=== PATIENT | female | born 1990 ===

== ENCOUNTER 2017-10-13 15:56 | Emergency (ER) | payer SELFPAY ==
[~2017-10-13] VITALS: Ht 162.6 cm; Wt 97.5 kg
[~2017-10-13 15:56] MED LIST: DCS100C PO; FRS325T PO; HYDR-3714 PO; IBUP-1773 PO; PREN-107 PO
[2017-10-13 16:40] LABS: BASOPHILS % (AUTO) 0 % (0-10); EOSINOPHILS # (AUTO) 0.3 10^3/uL (0.0-0.3); EOSINOPHILS % (AUTO) 2 % (0-10); HEMATOCRIT 38 % (35-52); HEMOGLOBIN 12.7 G/DL (11.5-16.0); LYMPHOCYTES # (AUTO) 2.6 X 10^3 (1.0-4.0); LYMPHOCYTES % (AUTO) 22 % (12-44); MEAN CORPUSCULAR HEMOGLOBIN 30 PG (25-34); MEAN CORPUSCULAR HGB CONC 34 G/DL (32-36); MEAN CORPUSCULAR VOLUME 90 FL (80-99); MEAN PLATELET VOLUME 10.2 FL (7.4-10.4); MONOCYTES # (AUTO) 0.8 X 10^3 (0.0-1.0); MONOCYTES % (AUTO) 7 % (0-12); NEUTROPHILS # (AUTO) 8.1 X 10^3 (1.8-7.8); NEUTROPHILS % (AUTO) 68 % (42-75); PLATELET COUNT 321 10^3/uL (130-400); RED CELL DISTRIBUTION WIDTH 12.7 % (10.0-14.5); WHITE BLOOD COUNT 11.9 10^3/uL (4.3-11.0)
--- NOTE | 2017-10-13 17:08 | ED GU-Female ---
General Chief Complaint: -Female Stated Complaint: BLEEDING, 2 MO PREG Nursing Triage Note: PT TO ROOM 9 AMBULATES CO OF LOWER ABD PAIN AND CRAMPING. PT IS APPROX 2 MONTHS , PT STATES HAS USED 2 PADS IN PAST 30MIN FOR BLEEDING. RATES PAIN 7-10 Nursing Sepsis Screen: No Definite Risk Source: patient Exam Limitations: no limitations (YURIY WIN MD) History of Present Illness Time seen by provider: 17:03 Initial Comments The patient is a 27-year-old female. She speaks little Spanish but history is given by her . She has not yet seen the provider. He states that she had a miscarriage last June shortly after seeing the provider she is been closed to do so. She had a previous and then delivered here in 2013. She states there is no pain. Apparently the flow was light this morning but has become heavier. Timing/Duration: this morning (approximately 30) Severity/Quality: mild (YURIY WIN MD) Allergies and Home Medications Allergies Coded Allergies: No Known Drug Allergies (Unverified , 10/29/13) Constitutional: see HPI EENTM: no symptoms reported Respiratory: no symptoms reported Cardiovascular: no symptoms reported Gastrointestinal: no symptoms reported Genitourinary: no symptoms reported Expected Date of Delivery: May 05, 2018 Musculoskeletal: no symptoms reported Skin: no symptoms reported Psychiatric/Neurological: No Symptoms Reported Endocrine: No Symptoms Reported Hematologic/Lymphatic: No Symptoms Reported (YURIY WIN MD) Past Pzchgvf-Annavj-Cqzccs Hx Patient Social History Alcohol Use: Denies Use Recreational Drug Use: No Smoking Status: Never a Smoker Recent Foreign Travel: No Contact w/Someone Who Travel: No Recent Infectious Disease Expo: No Recent Hopitalizations: No (YURIY WIN MD) Immunizations Up To Date Tetanus Booster (TDap): Unknown Date of Influenza Vaccine: Aug 06, 2013 (YURIY WIN MD) Surgeries History of Surgeries: Yes (YURIY WIN MD) Respiratory History of Respiratory Disorde: No (YURIY WIN MD) Cardiovascular History of Cardiac Disorders: No (YURIY WIN MD) Neurological History of Neurological Disord: No (YURIY WIN MD) Reproductive System : Yes Expected Date of Delivery: May 05, 2018 Last Menstrual Period: Aug 06, 2017 Hx Reproductive Disorders: No (YURIY WIN MD) Gastrointestinal History of Gastrointestinal Di: No (YURIY WIN MD) Musculoskeletal History of Musculoskeletal Dis: No (YURIY WIN MD) Endocrine History of Endocrine Disorders: No (YURIY WIN MD) Cancer History of Cancer: No (YURIY WIN MD) Psychosocial History of Psychiatric Problem: No (YURIY WIN MD) Integumentary History of Skin or Integumenta: No (YURIY WIN MD) Blood Transfusions History of Blood Disorders: No Adverse Reaction to a Blood Tr: No (YURIY WIN MD) Family Medical History Family Medial History: Patient reports no known family medical history. (YURIY WIN MD) Family Medial History: Patient reports no known family medical history. (ISAAC LESLIE DO) Physical Exam Vital Signs Vital Sign - Last 12Hours 10/13/17 16:00 Temp 97.9 Pulse 119 Resp 18 B/P (MAP) 133/84 (100) Pulse Ox 98 (IASAC LESLIE DO) Vital Signs Capillary Refill : Less Than 3 Seconds (YURIY WIN MD) General Appearance: other (aNXIOUS) HEENT: normal ENT inspection Neck: full range of motion Cardiovascular: normal peripheral pulses, regular rate, rhythm, no edema, no gallop, no JVD, no murmur Respiratory: chest non-tender, lungs clear, normal breath sounds, no respiratory distress, no accessory muscle use, respiratory distress Gastrointestinal: normal bowel sounds, non tender, soft, no organomegaly, no pulsatile mass, abnormal bowel sounds Back: normal inspection Extremities: normal range of motion, non-tender, normal inspection, no pedal edema, no calf tenderness, normal capillary refill, pelvis stable Neurologic/Psychiatric: 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 nml as tested, no motor/sensory deficits, alert, normal mood/affect, oriented x 3 Skin: normal color, warm/dry, cyanosis, cool, diaphoresis, pallor Lymphatic: no adenopathy, axilla node tender (R), axilla node tender (L), inguinal node tender (R), inguinal node tender (L) (YURIY WIN MD) Progress/Results/Core Measures Suspected Sepsis Recent Fever Within 48 Hours: No Infection Criteria Present: None New/Unexplained Altered Menta: No Sepsis Screen: No Definite Risk Sepsis Diagnosis: SIRS Temperature:97.9 Pulse: 119 Respiratory Rate: 18 Laboratory Tests 10/13/17 16:31: White Blood Count 11.9H Blood Pressure 133 /84 Mean: 100 Laboratory Tests 10/13/17 16:31: Platelet Count 321 (YURIY WIN MD) Results/Orders Lab Results Laboratory Tests Test 10/13/17 16:31 Range/Units White Blood Count 11.9 H 4.3-11.0 10^3/uL Red Blood Count 4.20 L 4.35-5.85 10^6/uL Hemoglobin 12.7 11.5-16.0 G/DL Hematocrit 38 35-52 % Mean Corpuscular Volume 90 80-99 FL Mean Corpuscular Hemoglobin 30 25-34 PG Mean Corpuscular Hemoglobin Concent 34 32-36 G/DL Red Cell Distribution Width 12.7 10.0-14.5 % Platelet Count 321 130-400 10^3/uL Mean Platelet Volume 10.2 7.4-10.4 FL Neutrophils (%) (Auto) 68 42-75 % Lymphocytes (%) (Auto) 22 12-44 % Monocytes (%) (Auto) 7 0-12 % Eosinophils (%) (Auto) 2 0-10 % Basophils (%) (Auto) 0 0-10 % Neutrophils # (Auto) 8.1 H 1.8-7.8 X 10^3 Lymphocytes # (Auto) 2.6 1.0-4.0 X 10^3 Monocytes # (Auto) 0.8 0.0-1.0 X 10^3 Eosinophils # (Auto) 0.3 0.0-0.3 10^3/uL Basophils # (Auto) 0.0 0.0-0.1 10^3/uL Human Chorionic Gonadotropin, Quant 4456 H <5 MIU/ML (ISAAC LESLIE DO) Vital Signs/I&O Vital Sign - Last 12Hours 10/13/17 16:00 Temp 97.9 Pulse 119 Resp 18 B/P (MAP) 133/84 (100) Pulse Ox 98 (ISAAC LESLIE DO) Vital Signs/I&O Capillary Refill : Less Than 3 Seconds (YURIY WIN MD) Blood Pressure Mean: 100 Progress Note : Progress Note 1800--ASSUMED CARE FROM DR. WIN, ULTRASOUND RESULTS PENDING PT REPORTEDLY PASSED A LARGE CLOT, POSSIBLE PRODUCTS OF CONCEPTION, IN TOILET PRIOR TO ULTRASOUND PT STATES SHE IS NOT HAVING ANY PAIN NOW AND BLEEDING HAS ALMOST STOPPED NOW. 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 SMALL 2.5 CM RIGHT OVARIAN CYST. PER TECH REPORT @ 1810 AND PER RADIOLOGIST REPORT @ 1843 Reviewed: Reviewed by Me (ISAAC LESLIE DO) Departure Impression Impression: Primary Impression: Spontaneous miscarriage Disposition: HOME, SELF-CARE Condition: Stable Departure-Patient Inst. Referrals: GITA WHARTON APRN (PCP) Primary Care Physician Patient Instructions: Miscarriage (DC) Add. Discharge Instructions: KEEP AN ACCURATE PAD COUNT--RETURN TO ER IF SOAKING MORE THAN 1 MAXI PAD AN HOUR LOTS OF CLEAR LIQUIDS NOTHING IN VAGINA--NO TAMPONS, DOUCHING OR INTERCOURSE FOLLOW UP WITH RUBBING BED OPERATOR IN 2-3 DAYS FOR FURTHER CARE All discharge instructions reviewed with patient and/or family. Voiced understanding. YURIY WIN MD Oct 13, 2017 17:08 ISAAC LESLIE DO Oct 13, 2017 18:32
--- NOTE | 2017-10-13 18:39 | Diagnostic Imaging Report ---
EXAMINATION: Pelvic sonogram. INDICATION: Cramping. Blood clots. FINDINGS: There is thickening demonstrated of the endometrium measuring up to 1.9 cm. There also appear to be blood products within the lower uterine segment within the cervical canal. There is no intrauterine gestational sac demonstrated. There is a right ovarian cyst, measuring 2.4 cm. The right ovary demonstrates Doppler flow. The left ovary could not be visualized. There is no left adnexal mass. There is no free fluid. IMPRESSION: 1. Endometrial thickening with apparent blood products within the lower uterine segment and cervical canal. There is no intrauterine gestational sac evident. 2. Right ovarian cyst. 3. Left ovary not seen. 4. No adnexal mass or free fluid. Dictated by: Dictated on workstation # [id number]
[2017-10-13 19:07] VITALS: BP 133/84
== END 2017-10-13 19:08 | disposition home or self-care (01) ==
LOC: EDUNIT# 15:56 → ER 16:00
DX: O03.9 Complete or unspecified spontaneous abortion without complication (principal); Z87.59 Personal history of other complications of pregnancy, childbirth and the puerperium; Z3A.00 Weeks of gestation of pregnancy not specified
CPT/HCPCS: 36415; 76817; 84702; 85025

== ENCOUNTER → 2018-06-27 | Outpatient (CLI) | payer OTHER ==
--- NOTE | 2018-06-27 14:32 | Diagnostic Imaging Report ---
INDICATION: Check dates. TECHNIQUE: Multiple real-time grayscale images were obtained over the gravid uterus. COMPARISON: None. FINDINGS: The previous pelvic ultrasound exam of 10/13/2017 noted endometrial thickening with apparent blood products within the lower uterine segment. There was no sign of a gestational sac. On this exam, there is a single live fetus in variable presentation. heart motion was noted and a rate of 150 BPM was recorded. There were no obvious abnormalities identified. The growth parameters are fairly uniform and suggests that the estimated gestational age is 17 weeks +/-1 week. The placenta is posterior and there is no previa. The amniotic fluid volume is within normal limits. IMPRESSION: 1. There is a single live fetus at approximately 17 weeks gestation +/-1 week. The EDC is December 05, 2018. 2. There were no obvious abnormalities identified. If a more sensitive evaluation of anatomy is desired however, then a short-term (4-6 week) followup ultrasound exam should be obtained. 3. The growth parameters are fairly uniform. Biometrical measurements are as follows: Biparietal 3.48 cm, age 16 weeks 6 days. Head circumference 13.23 cm, age 16 weeks 6 days. Abdominal circumference 11.30 cm, age 17 weeks 1 days. Femur length 2.34 cm, age 17 weeks 1 days. Sonographic estimate age: 17 weeks 0 days. Sonographic estimated date of delivery: 12/05/2018. Estimated Weight: 179 gm (+/- 26 gm). LMP percentile: 98%. heart rate: 150 beats per minute. number: 1 of 1. Dictated by: Dictated on workstation # [id number]
== END ==
LOC: RAD 12:32
PROVIDERS: ATTEND Family Medicine
DX: Z34.82 Encounter for supervision of other normal pregnancy, second trimester (principal); Z3A.17 17 weeks gestation of pregnancy
CPT/HCPCS: 76805

== ENCOUNTER → 2018-08-04 | Outpatient (CLI) | payer OTHER ==
--- NOTE | 2018-08-04 15:43 | Diagnostic Imaging Report ---
INDICATION: survey. TECHNIQUE: Multiple real-time grayscale images were obtained over the gravid uterus. COMPARISON: 06/27/2018. FINDINGS: There is a single live fetus in a variable presentation. heart rate was recorded at 140 beats per minute. Placenta is posterior. Amniotic fluid volume is normal. Cervical length is 4.7 cm. survey demonstrates kidneys, bladder, and stomach to be unremarkable. The brain is unremarkable. There is a three-vessel cord with normal insertion. spine and four-chamber heart views were limited in evaluation due to position. Maternal adnexa was not evaluated. Biometrical measurements are as follows: Biparietal 5.19 cm, age 21 weeks 6 days. Head circumference 19.59 cm, age 21 weeks 6 days. Abdominal circumference 17.57 cm, age 22 weeks 4 days. Femur length 3.63 cm, age 21 weeks 4 days. Sonographic estimate age: 22 weeks 0 days. Sonographic estimated date of delivery: 12/08/2018. Estimated Weight: 469 gm (+/- 68 gm). LMP percentile: 24%. heart rate: 140 beats per minute. number: 1 of 1. IMPRESSION: Single live IUP at approximately 22 weeks gestational age showing normal interval growth when compared with prior ultrasound from 06/27/2018. survey is unremarkable, although the four-chamber heart view and spine were limited in evaluation due to position. Followup could be performed. Dictated by: Dictated on workstation # [id number]
== END ==
LOC: RAD 11:45
PROVIDERS: ATTEND Family Medicine
DX: Z36.89 Encounter for other specified antenatal screening (principal); Z3A.22 22 weeks gestation of pregnancy
CPT/HCPCS: 76805

== ENCOUNTER → 2018-08-15 | Outpatient (CLI) | payer OTHER ==
--- NOTE | 2018-08-15 16:50 | Diagnostic Imaging Report ---
INDICATION: Followup anatomy not seen on previous exam. TECHNIQUE: Multiple real-time grayscale images were obtained over the gravid uterus. COMPARISON: 08/04/2018. FINDINGS: There is a single live fetus in transverse presentation. heart rate was recorded at 147 beats per minute. Placenta is posterior. Amniotic fluid volume is normal. Cervical length is 3.9 cm. Four-chamber heart view is unremarkable on today's study. The spine is unremarkable. IMPRESSION: Unremarkable limited obstetrical ultrasound. Dictated by: Dictated on workstation # [id number]
== END ==
LOC: RAD 14:18
PROVIDERS: ATTEND Family Medicine
DX: Z36.89 Encounter for other specified antenatal screening (principal); Z3A.00 Weeks of gestation of pregnancy not specified
CPT/HCPCS: 76816

== ENCOUNTER 2018-11-12 11:01 | Outpatient (CLI) | payer OTHER ==
[~2018-11-12] VITALS: Ht 162.6 cm; Wt 107.2 kg
[2018-11-14] MEDS ORDERED: IBUP-844 PO (07:31)
[2018-11-14] MEDS ORDERED: ACHD5005 PO (07:31)
[2018-11-14] MEDS ORDERED: DOCU100C37 PO (07:31)
== END 2018-11-12 15:03 | disposition home or self-care (01) ==
LOC: PREOP 11:01
PROVIDERS: ATTEND Obstetrics & Gynecology
DX: Z01.818 Encounter for other preprocedural examination (principal)
CPT/HCPCS: 87081

== ENCOUNTER 2018-11-14 06:25 | Inpatient (IN) | payer OTHER ==
[~2018-11-14] VITALS: Ht 162.6 cm; Wt 106.6 kg
--- NOTE | 2018-11-14 06:24 | NUR ---
ZAY HERRERA presented to unit via ambulation from home, accompanied by family, for REPEAT C SECTION , DUE 12/05/18. ZAY HERRERA Y weighed, gowned, voided, and to bed. EFHM and TOCO applied, VS taken. ZAY HERRERA oriented to bed controls, call light, TV, heat, and A/C controls.
[2018-11-14 06:32] VITALS: BP 114/55
--- OUTSIDE RECORDS SUMMARY | 2018-11-14 06:33 | XMS REPORT ---
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 Active 664486405 Problem Tension headache G44.209 Active 839161593 Problem Previous section complicating O34.219 Active 419359545 Problem Subclinical hypothyroidism E03.9 Active 35795922 ALLERGIES No Information ENCOUNTERS Encounter Location Date Diagnosis [place] [address] [place] [address] Sep, [place] [address] [place] [id number] [place] [address]- 365[address] Aug, Subclinical hypothyroidism E03.9 [place] [address] [place] [address] Aug, Obstruction of bile duct K83.1 ; Liver and biliary tract disorders in , third trimester O26.613 and Subclinical hypothyroidism E03.9 [place] [address] [place] [address] Aug, Abnormal glucose affecting O99.810 [place] [address] [place] [id number] [place] [address] 138[address] Aug, Abnormal glucose affecting O99.810 [place] [address] [place] [address]- [address]85 Aug, Second trimester Z34.92 ; Urinary tract infection affecting care of mother in second trimester, antepartum O23.42 ; 25 weeks gestation of Z3A.25 ; Itching L29.9 and BMI 45.0-49.9, adult Z68.42 [place] [address] [address] Aug, Acute cystitis without hematuria N30.00 [place] [address] [address] Aug, Acute cystitis without hematuria N30.00 [place] [address] [address] Aug, Second trimester Z34.92 ; Acute cystitis without hematuria N30.00 ; 22 weeks gestation of Z3A.22 ; Evaluate anatomy not seen on prior sonogram Z04.89 and BMI 45.0-49.9, adult Z68.42 [place] [address] [address] Jul, [place] [address] [address] Jul, [place] [address] [address] Jul, Acquired hypothyroidism E03.9 and Acute cystitis without hematuria N30.00 [place] [address] [address] Jul, Acute cystitis without hematuria N30.00 [place] [address] [address] Jul, Second trimester Z34.92 ; Subclinical hypothyroidism E03.9 ; Encounter for immunization Z23 ; Acute cystitis without hematuria N30.00 ; 18 weeks gestation of Z3A.18 and Tension headache G44.209 [place] [address] [address] Jun, [place] [address] [address] 12 Sep, 2018 Acquired hypothyroidism E03.9 [place] [address] [place] [id number] [address] 08 Jun, 2018 Urinary tract infection affecting care of mother in first trimester, antepartum O23.41 [place] [address] [place] [id number] [address] 07 Jun, 2018 [place] [address] [place] [address] Jun, [place] [address] [place] [address] Jun, [place] [address] [place] [address]- [address] Jun, BMI 45.0-49.9, adult Z68.42 ; Multigravida in first trimester Z34.81 and 11 weeks gestation of Z3A.11 [place] [address] [address] Jun, [place] [address] [place] [id number] [address] Jun, Encounter for test, result unknown Z32.[address] [facility] [address] [address] Sep, Vaginal bleeding, abnormal N93.9 and Pelvic cramping R10.[address] [facility] [address] [address] Jul, Encounter for Depo-Provera contraception Z30.[address] [facility] [address] [address] Apr, Encounter for Depo-Provera contraception Z30.[address] [facility] [address] [address] Apr, Routine gynecological examination Z01.419 and High risk sexual behavior Z72.[address] [facility] [address] [address] Apr, Encounter for initial prescription of injectable contraceptive Z30.[address] [facility] [address] [place] [address] Dec, Dental examination Z01.20 [facility] [place] [address] [place] [address] Dec, Dental examination Z01.20 [facility] [place] [address] [place] [address] Nov, Dental examination Z01.20 [facility] [place] [address] [place] [address] Nov, Dental examination Z01.20 [facility] [place] [address] [place] [address] Oct, Dental examination Z01.20 [facility] [place] [address] [place] [address] Oct, Dental examination Z01.20 and Dental caries on smooth surface penetrating into pulp K02.63 [facility] [address] [place] [id number] [place] [address] Jan, [facility] [address] [place] [id number] [place] [address]- [address] Jan, [facility] [address] [place] [id number] [place] [address]- [address] Dec, [facility] [address] [place] [id number] [place] [address]- [address] Dec, [facility] [address] [place] [address] Oct, [facility] [address] [place] [id number] [place] [address]- [address] Oct, [facility] [address] [place] [id number] [place] [address] Oct, [facility] [address] [place] [id number] [place] [address]- [address] Oct, [facility] [address] [place] [id number] [place] [address]- [address] Oct, [facility] [place] [facility] [address] [id number] [place] [address] 15 Oct, 2013 [facility] [place] [facility] [address] [id number] [place] [address] Oct, [facility] [place] [facility] [address] [id number] [place] [address] 269[address] Oct, [facility] [place] [facility] [address] [id number] [place] [address] Oct, [facility] [place] [facility] [address] [id number] [place] [address] Sep, [facility] [place] [facility] [address] [id number] [place] [address] Sep, [facility] [place] [facility] [address] [id number] [place] [address] Sep, [facility] [place] [facility] [address] [id number] [place] [address] 49[address] Sep, [facility] [place] [facility] [address] [id number] [place] [address] Aug, [facility] [place] [facility] [address] [id number] [place] [address] 83[address] Aug, [facility] [place] [facility] [address] [id number] [place] [address] Aug, [facility] [place] [facility] [address] [id number] [place] [address] 0[address] Jul, [facility] [place] [facility] [address] [id number] [place] [address] 18[address] Jul, [facility] [place] [facility] [address] [id number] [place] [address]- 7587 Jul, [facility] [place] [facility] [address] [id number] [place] [address] Jul, [facility] [place] [facility] [address] [id number] [place] [address] Jul, [facility] [address] [facility] [id number] [address] Jul, [facility] [address] [facility] [id number], [place] [address] Jul, [facility] [address] [facility] [id number], [place] [address] Jul, IMMUNIZATIONS No Known Immunizations SOCIAL HISTORY Never Assessed REASON FOR VISIT PLAN OF CARE Activity Details Pending Test GLUCOSE BARNEY 3 HOUR VITAL SIGNS MEDICATIONS Unknown Medications RESULTS No Results PROCEDURES No Known procedures INSTRUCTIONS MEDICATIONS ADMINISTERED No Known Medications MEDICAL (GENERAL) HISTORY Type Description Date Surgical History appendectomy Surgical History section X 2 Hospitalization History Surgery(s)/Childbirth(s)
--- OUTSIDE RECORDS SUMMARY | 2018-11-14 06:33 | XMS REPORT ---
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 Active 255265602 Problem Tension headache G44.209 Active 531594602 Problem Previous section complicating O34.219 Active 029626486 Problem Subclinical hypothyroidism E03.9 Active 08419116 ALLERGIES No Information ENCOUNTERS Encounter Location Date Diagnosis [place] [id number] [place] [address] 22993- 8246 Sep, [place] [address] [place] [id number] [place] [address] 35603- 4315 Aug, Subclinical hypothyroidism E03.9 [place] [id number] [place] [address] 18800- 8047 Aug, Obstruction of bile duct K83.1 ; Liver and biliary tract disorders in , third trimester O26.613 and Subclinical hypothyroidism E03.9 [place] [id number] [place] [address] 27165- 7901 Aug, Abnormal glucose affecting O99.810 [place] [address] [place] [id number] [place] [address] 24894- 3807 Aug, Abnormal glucose affecting O99.810 [place] [address] [place] [address] 29806- 3767 Aug, Second trimester Z34.92 ; Urinary tract infection affecting care of mother in second trimester, antepartum O23.42 ; 25 weeks gestation of Z3A.25 ; Itching L29.9 and BMI 45.0-49.9, adult Z68.42 [place] [address] 03822- 5853 Aug, Acute cystitis without hematuria N30.00 [place] [address] 83896- 9080 Aug, Acute cystitis without hematuria N30.00 [place] [address] 59789- 6454 Aug, Second trimester Z34.92 ; Acute cystitis without hematuria N30.00 ; 22 weeks gestation of Z3A.22 ; Evaluate anatomy not seen on prior sonogram Z04.89 and BMI 45.0-49.9, adult Z68.42 [place] [address] 93465- 5242 Jul, [place] [address] 27469- 1635 Jul, [place] [address] 56282- 1823 Jul, Acquired hypothyroidism E03.9 and Acute cystitis without hematuria N30.00 [place] [address] 02059- 5695 Jul, Acute cystitis without hematuria N30.00 [place] [address] 29628- 0895 Jul, Second trimester Z34.92 ; Subclinical hypothyroidism E03.9 ; Encounter for immunization Z23 ; Acute cystitis without hematuria N30.00 ; 18 weeks gestation of Z3A.18 and Tension headache G44.209 [place] [address] 16865- 8772 Jun, [place] [address] 77596- 7711 12 Sep, 2018 Acquired hypothyroidism E03.9 [place] [address] [place] [id number] [address] 7229 08 Jun, 2018 Urinary tract infection affecting care of mother in first trimester, antepartum O23.41 [place] [address] [id number] [address] 7165 07 Jun, 2018 [place] [address] [address] 3709 Jun, [place] [address] [address] 5574 Jun, [place] [address] [place] [address] 34886- 2122 Jun, BMI 45.0-49.9, adult Z68.42 ; Multigravida in first trimester Z34.81 and 11 weeks gestation of Z3A.11 [place] [address] [address] 5409 Jun, [place] [address] [id number] [address] 0914 Jun, Encounter for test, result unknown Z32.[address] [facility] [address] [address] Sep, Vaginal bleeding, abnormal N93.9 and Pelvic cramping R10.[address] [facility] [address] [address] Jul, Encounter for Depo-Provera contraception Z30.[address] [facility] [address] [address] Apr, Encounter for Depo-Provera contraception Z30.[address] [facility] [address] [address] Apr, Routine gynecological examination Z01.419 and High risk sexual behavior Z72.[address] [facility] [address] [address] Apr, Encounter for initial prescription of injectable contraceptive Z30.[address] [facility] [address] [place] [address] Dec, Dental examination Z01.20 [facility] [place] [address] [place] [address] Dec, Dental examination Z01.20 [facility] [place] [address] [place] [address] Nov, Dental examination Z01.20 [facility] [place] [address] [place] [address] Nov, Dental examination Z01.20 [facility] [place] [address] [place] [address] Oct, Dental examination Z01.20 [facility] [place] [address] [place] [address] Oct, Dental examination Z01.20 and Dental caries on smooth surface penetrating into pulp K02.63 [facility] [address] [id number] [place] [address] 17678- 2552 Jan, [facility] [address] [address] [id number] [place] [address] 71887- 4674 Jan, [facility] [address] [id number] [place] [address] 14078- 7652 Dec, [facility] [address] [address] [id number] [place] [address] 53159- 0239 Dec, [facility] [address] [place] [address] 87506- 3542 Oct, [facility] [address] [place] [address] [id number] [place] [address] 76180- 3396 Oct, [facility] [address] [address] [id number] [place] [address] 00684- 8947 Oct, [facility] [address] [place] [address] [id number] [place] [address] 55639- 4817 Oct, [facility] [address] [address] [id number] [place] [address] 36263- 4274 Oct, [facility] [place] [facility] [address] [id number] [place] [address] 5012 15 Oct, 2013 [facility] [place] [facility] [address] [id number] [place] [address] 3340 Oct, [facility] [place] [facility] [address] [id number] [place] [address]- 9326 Oct, [facility] [place] [facility] [address] [id number] [place] [address]- 8835 Oct, [facility] [place] [facility] [address] [id number] [place] [address]- 8293 Sep, [facility] [place] [facility] [address] [id number] [place] [address]- 4197 Sep, [facility] [place] [facility] [address] [id number] [place] [address]- 7100 Sep, [facility] [place] [facility] [address] [id number] [place] [address]- 9689 Sep, [facility] [place] [facility] [address] [id number] [place] [address]- 1391 Aug, [facility] [place] [facility] [address] [id number] [place] [address]- 3451 Aug, [facility] [place] [facility] [address] [id number] [place] [address]- 0618 Aug, [facility] [place] [facility] [address] [id number] [place] [address]- 0324 Jul, [facility] [place] [facility] [address] [id number] [place] [address]- 1637 Jul, [facility] [place] [facility] [address] [id number] [place] [address]- 6367 Jul, [facility] [place] [facility] [address] [id number] [place] [address]- 8651 Jul, [facility] [place] [facility] [address] [id number] [place] [address]- 6498 Jul, [facility] [address] [facility] [id number] [address] 3456 Jul, [facility] [address] [facility] [id number], [place] [address]- 0106 Jul, [facility] [address] [facility] [id number], [place] [address]- 7746 Jul, IMMUNIZATIONS No Known Immunizations SOCIAL HISTORY Never Assessed REASON FOR VISIT PLAN OF CARE VITAL SIGNS MEDICATIONS Medication Instructions Dosage Frequency Start Date End Date Duration Status Ursodiol 300 MG Orally 3 times a day 1 capsule 8h Aug, Active Ferrous Sulfate Active Vitamins - (Dis) Active Levothyroxine Sodium 50 mcg Orally Once a day 1 tablet on an empty stomach in the morning 24h Jun, Active RESULTS No Results PROCEDURES No Known procedures INSTRUCTIONS MEDICATIONS ADMINISTERED No Known Medications MEDICAL (GENERAL) HISTORY Type Description Date Surgical History appendectomy Surgical History section X 2 Hospitalization History Surgery(s)/Childbirth(s)
--- OUTSIDE RECORDS SUMMARY | 2018-11-14 06:33 | XMS REPORT ---
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 Active 393515072 Problem Tension headache G44.209 Active 555297400 Problem Previous section complicating O34.219 Active 031449092 Problem Subclinical hypothyroidism E03.9 Active 95288245 ALLERGIES No Information ENCOUNTERS Encounter Location Date Diagnosis [place] [address] [place] [address] 72980- 6623 Sep, [place] [address] [place] [id number] [place] [address] 80591- 9297 Aug, Subclinical hypothyroidism E03.9 [place] [address] [place] [address] 55845- 2167 Aug, Obstruction of bile duct K83.1 ; Liver and biliary tract disorders in , third trimester O26.613 and Subclinical hypothyroidism E03.9 [place] [address] [place] [address] 16205- 6872 Aug, Abnormal glucose affecting O99.810 [place] [address] [place] [id number] [place] [address] 32652- 2509 Aug, Abnormal glucose affecting O99.810 [place] [address] [place] [address] 40840- 4764 Aug, Second trimester Z34.92 ; Urinary tract infection affecting care of mother in second trimester, antepartum O23.42 ; 25 weeks gestation of Z3A.25 ; Itching L29.9 and BMI 45.0-49.9, adult Z68.42 [place] [address] 57522- 5924 Aug, Acute cystitis without hematuria N30.00 [place] [address] 08578- 2023 Aug, Acute cystitis without hematuria N30.00 [place] [address] 51165- 9429 Aug, Second trimester Z34.92 ; Acute cystitis without hematuria N30.00 ; 22 weeks gestation of Z3A.22 ; Evaluate anatomy not seen on prior sonogram Z04.89 and BMI 45.0-49.9, adult Z68.42 [place] [address] 23440- 9439 Jul, [place] [address] 55593- 4116 Jul, [place] [address] 20630- 5506 Jul, Acquired hypothyroidism E03.9 and Acute cystitis without hematuria N30.00 [place] [address] 89212- 2677 Jul, Acute cystitis without hematuria N30.00 [place] [address] 99816- 2034 Jul, Second trimester Z34.92 ; Subclinical hypothyroidism E03.9 ; Encounter for immunization Z23 ; Acute cystitis without hematuria N30.00 ; 18 weeks gestation of Z3A.18 and Tension headache G44.209 [place] [address] 39883- 2118 Jun, [place] [address] 91398- 6494 12 Sep, 2018 Acquired hypothyroidism E03.9 [place] [address] [place] [id number], [place] [address]- 6706 08 Jun, 2018 Urinary tract infection affecting care of mother in first trimester, antepartum O23.41 [place] [address] [place] [id number] [address]- 1638 07 Jun, 2018 [place] [address] [address]- 7505 Jun, [place] [address], [place] [address]- 7399 Jun, [place] [address] [place] [address] 55976- 2439 Jun, BMI 45.0-49.9, adult Z68.42 ; Multigravida in first trimester Z34.81 and 11 weeks gestation of Z3A.11 [place] [address], [place] [address]- 9873 Jun, [place] [address] [id number], [place] [address]- 6448 Jun, Encounter for test, result unknown Z32.[address] [facility] [address] [address] Sep, Vaginal bleeding, abnormal N93.9 and Pelvic cramping R10.[address] [facility] [address] [address] Jul, Encounter for Depo-Provera contraception Z30.[address] [facility] [address] [address] Apr, Encounter for Depo-Provera contraception Z30.[address] [facility] [address] [address] Apr, Routine gynecological examination Z01.419 and High risk sexual behavior Z72.[address] [facility] [address] [address] Apr, Encounter for initial prescription of injectable contraceptive Z30.[address] [facility] [address] [place] [address] Dec, Dental examination Z01.20 [facility] [place] [address] [place] [address] Dec, Dental examination Z01.20 [facility] [place] [address] [place] [address] Nov, Dental examination Z01.20 [facility] [place] [address] [place] [address] Nov, Dental examination Z01.20 [facility] [place] [address] [place] [address] Oct, Dental examination Z01.20 [facility] [place] [address] [place] [address] Oct, Dental examination Z01.20 and Dental caries on smooth surface penetrating into pulp K02.63 [facility] [place] [address] [place] [id number] [place] [address] 77440- 9063 Jan, [facility] [place] [address] [place] [address] [id number] [place] [address] 46915- 9688 Jan, [facility] [place] [address] [place] [address] [id number] [place] [address] 44428- 5641 Dec, [facility] [place] [address] [place] [address] [id number] [place] [address] 95585- 8256 Dec, [facility] [place] [address] [place] [address] 70909- 1965 Oct, [facility] [place] [address] [place] [address] [id number] [place] [address] 78748- 7976 Oct, [facility] [place] [address] [address] [id number] [place] [address] 62217- 7280 Oct, [facility] [place] [address] [address] [id number] [place] [address] 86142- 2250 Oct, [facility] [place] [address] [address] [id number] [place] [address] 64716- 3907 Oct, [facility] [place] [facility] [address] [id number] [place] [address]- 5599 15 Oct, 2013 [facility] [place] [facility] [address] [id number] [place] [address]- 3084 Oct, [facility] [place] [facility] [address] [id number] [place] [address]- 7826 Oct, [facility] [place] [facility] [address] [id number] [place] [address]- 4115 Oct, [facility] [place] [facility] [address] [id number] [place] [address]- 1047 Sep, [facility] [place] [facility] [address] [id number] [place] [address]- 6158 Sep, [facility] [place] [facility] [address] [id number] [place] [address]- 9708 Sep, [facility] [place] [facility] [address] [id number] [place] [address]- 2138 Sep, [facility] [place] [facility] [address] [id number] [place] [address]- 3821 Aug, [facility] [place] [facility] [address] [id number] [place] [address]- 0813 Aug, [facility] [place] [facility] [address] [id number] [place] [address]- 1671 Aug, [facility] [place] [facility] [address] [id number] [place] [address]- 1434 Jul, [facility] [place] [facility] [address] [id number] [place] [address]- 5568 Jul, [facility] [place] [facility] [address] [id number] [place] [address]- 2125 Jul, [facility] [place] [facility] [address] [id number] [place] [address]- 2678 Jul, [facility] [place] [facility] [address] [id number] [place] [address]- 0519 Jul, [facility] [place] [address] [facility] [id number] 3143 Jul, [facility] [place] [address] [facility] [id number], [place] [address]- 9169 Jul, [facility] [place] [address] [facility] [id number], [place] [address]- 8430 Jul, IMMUNIZATIONS No Known Immunizations SOCIAL HISTORY Never Assessed REASON FOR VISIT Lab order PLAN OF CARE VITAL SIGNS MEDICATIONS Unknown Medications RESULTS No Results PROCEDURES No Known procedures INSTRUCTIONS MEDICATIONS ADMINISTERED No Known Medications MEDICAL (GENERAL) HISTORY Type Description Date Surgical History appendectomy Surgical History section X 2 Hospitalization History Surgery(s)/Childbirth(s)
--- OUTSIDE RECORDS SUMMARY | 2018-11-14 06:33 | XMS REPORT ---
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 Active 759622848 Problem Tension headache G44.209 Active 851017299 Problem Gestational diabetes mellitus (GDM) in third trimester, gestational diabetes method of control unspecified O24.419 Active 99458138 Problem Previous section complicating O34.219 Active 710983901 Problem Subclinical hypothyroidism E03.9 Active 48062206 ALLERGIES No Information ENCOUNTERS Encounter Location Date Diagnosis [place] [id number] [place] [address] 29187- 2086 Sep, [place] [id number] [place] [address] 51384- 5314 Sep, Gestational diabetes mellitus (GDM) in third trimester, gestational diabetes method of control unspecified O24.419 ; Third trimester Z34.93 and 29 weeks gestation of Z3A.29 [place] [id number] [place] [address] 94238- 2707 Aug, Subclinical hypothyroidism E03.9 [place] [id number] [place] [address] 17914- 0691 Aug, Obstruction of bile duct K83.1 ; Liver and biliary tract disorders in , third trimester O26.613 and Subclinical hypothyroidism E03.9 [facility] [address] [place] [address] 39318- 6966 Aug, Abnormal glucose affecting O99.810 [place] [id number] [place] [address] 37036- 9691 Aug, Abnormal glucose affecting O99.810 [place] [id number] [place] [address] 01265- 3804 Aug, Second trimester Z34.92 ; Urinary tract infection affecting care of mother in second trimester, antepartum O23.42 ; 25 weeks gestation of Z3A.25 ; Itching L29.9 and BMI 45.0-49.9, adult Z68.42 [place] [id number] [place] [address] 26428- 0830 Aug, Acute cystitis without hematuria N30.00 [place] [id number] [place] [address] 27848- 3875 Aug, Acute cystitis without hematuria N30.00 [place] [address] 55666- 7761 Aug, Second trimester Z34.92 ; Acute cystitis without hematuria N30.00 ; 22 weeks gestation of Z3A.22 ; Evaluate anatomy not seen on prior sonogram Z04.89 and BMI 45.0-49.9, adult Z68.42 [place] [id number] [place] [address] 83172- 9768 Jul, [place] [id number] [place] [address] 21381- 0142 Jul, [place] [id number] [place] [address] 69120- 2694 Jul, Acquired hypothyroidism E03.9 and Acute cystitis without hematuria N30.00 [place] [id number] [place] [address] 80309- 4432 Jul, Acute cystitis without hematuria N30.00 [place] [id number] [place] [address] 50289- 1302 Jul, Second trimester Z34.92 ; Subclinical hypothyroidism E03.9 ; Encounter for immunization Z23 ; Acute cystitis without hematuria N30.00 ; 18 weeks gestation of Z3A.18 and Tension headache G44.209 [place] [id number] [place] [address] 21429- 2724 Jun, [place] [id number] [place] [address] 33642- 1307 Jun, Acquired hypothyroidism E03.9 [place] [address] 13606- 2596 Jun, Urinary tract infection affecting care of mother in first trimester, antepartum O23.41 [place] [address] 36166- 7566 07 Jun, 2018 [place] [address] 82385- 4377 Jun, [place] [address] 57422- 1538 Jun, [place] [id number] [place] [address] 10329- 1018 Jun, BMI 45.0-49.9, adult Z68.42 ; Multigravida in first trimester Z34.81 and 11 weeks gestation of Z3A.11 [place] [id number] [place] [address] 43229- 4264 Jun, [place] [id number] [place] [address] 71209- 5846 Jun, Encounter for test, result unknown Z32.00 [facility] [place] [address] [place] [address] Sep, Vaginal bleeding, abnormal N93.9 and Pelvic cramping R10.2 [facility] [place] [address] [place] [address] Jul, Encounter for Depo-Provera contraception Z30.42 [facility] [place] [address] [place] [address] Apr, Encounter for Depo-Provera contraception Z30.42 [facility] [address] [place] [address] Apr, Routine gynecological examination Z01.419 and High risk sexual behavior Z72.51 [facility] [address] [place] [address] Apr, Encounter for initial prescription of injectable contraceptive Z30.013 [facility] [address] [place] [address] Dec, Dental examination Z01.20 [facility] [address] [place] [address] Dec, Dental examination Z01.20 [facility] [address] [place] [address] Nov, Dental examination Z01.20 [facility] [address] [place] [address] Nov, Dental examination Z01.20 [facility] [address] [place] [address] Oct, Dental examination Z01.20 [facility] [address] [place] [address] Oct, Dental examination Z01.20 and Dental caries on smooth surface penetrating into pulp K02.63 [facility] [id number] [place] [address] 22290- 9333 Jan, [facility] [id number] [place] [address] 48485- 0121 Jan, [facility] [id number] [place] [address] 88042- 8345 Dec, [facility] [id number] [place] [address] 54247- 4447 Dec, [facility] [id number] [place] [address] 53368- 4319 Oct, [facility] [id number] [place] [address] 52293- 2760 Oct, [facility] [place] [facility] [address] [id number] [place] [address]- 5191 Oct, [facility] [place] [facility] [address] [id number] [place] [address]- 9935 Oct, [facility] [place] [facility] [address] [id number] [place] [address]- 1680 Oct, [facility] [place] [facility] [address] [id number] [place] [address]- 7914 Oct, [facility] [place] [facility] [address] [id number] [place] [address]- 1080 Oct, [facility] [place] [facility] [address] [id number] [place] [address]- 6283 Oct, [facility] [place] [facility] [address] [id number] [place] [address]- 5441 Oct, [facility] [place] [facility] [address] [id number] [place] [address]- 7030 Sep, [facility] [place] [facility] [address] [id number] [place] [address]- 5772 Sep, [facility] [place] [facility] [address] [id number] [place] [address]- 5891 Sep, [facility] [place] [facility] [address] [id number] [place] [address]- 8332 Sep, [facility] [place] [facility] [address] [id number] [place] [address]- 1726 Aug, [facility] [place] [facility] [address] [id number] [place] [address]- 3442 Aug, [facility] [place] [facility] [address] [id number] [place] [address]- 4133 Aug, [facility] [place] [facility] [address] [id number] [place] [address]- 6686 Jul, [facility] [place] [facility] [address] [id number] [place] [address]- 9098 Jul, [facility] [id number] [address]- 6942 Jul, [facility] [address] [place] [address]- 3043 Jul, [facility] [id number] [address]- 4307 Jul, [facility] [address] [place] [address]- 6594 Jul, [facility] [address] [place] [address]- 3089 Jul, [facility] [address] [place] [address]- 6217 Jul, IMMUNIZATIONS No Known Immunizations SOCIAL HISTORY Never Assessed REASON FOR VISIT OB f/u, long dip with urine culture in third trimester -a[place] PLAN OF CARE Activity Details Pending Test CULTURE, URINE VITAL SIGNS Height 58 in 2018-09-23 Weight 229.4 lbs 2018-09-23 Temperature 98.3 degrees Fahrenheit 2018-09-23 Heart Rate 79 bpm 2018-09-23 Respiratory Rate 20 2018-09-23 BMI 47.945 kg/m2 2018-09-23 Blood pressure systolic 118 mmHg 2018-09-23 Blood pressure diastolic 82 mmHg 2018-09-23 MEDICATIONS Medication Instructions Dosage Frequency Start Date End Date Duration Status Ursodiol 300 MG Orally 3 times a day 1 capsule 8h Aug, Active Levothyroxine Sodium 50 mcg Orally Once a day 1 tablet on an empty stomach in the morning 24h Jun, Active Ferrous Sulfate Active Vitamins - (Dis) Active Glucocard Expression Monitor w/Device as directed Sep, Active Glucocard Expression Test - as directed 6h Sep, Active RESULTS Name Result Date Reference Range UA LONG DIP (IN HOUSE) 2018-09-23 Lot # [id number] Exp date 06/2019 Clarity yellow Color clear Odor GLU neg AKIRA neg KET neg SG 1.010 BLO neg pH 7.0 Protein neg URO 0.2 NIT neg CHIRAG neg Lot # Exp date PROCEDURES Procedure Date Ordered Result Body Site URINALYSIS, AUTO, W/O SCOPE Sep 23, 2018 URINE CULTURE/COLONY COUNT Sep 23, 2018 INSTRUCTIONS MEDICATIONS ADMINISTERED No Known Medications MEDICAL (GENERAL) HISTORY Type Description Date Surgical History appendectomy Surgical History section X 2 Hospitalization History Surgery(s)/Childbirth(s)
--- OUTSIDE RECORDS SUMMARY | 2018-11-14 06:33 | XMS REPORT ---
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 Active 405604159 Problem Tension headache G44.209 Active 259865349 Problem Previous section complicating O34.219 Active 161645895 Problem Subclinical hypothyroidism E03.9 Active 96226986 ALLERGIES No Information ENCOUNTERS Encounter Location Date Diagnosis [place] [address] [place] [address] 36792- 9376 Sep, [place] [address] [place] [id number] [place] [address] 06093- 9540 Aug, Subclinical hypothyroidism E03.9 [place] [address] [place] [address] 24878- 1457 Aug, Obstruction of bile duct K83.1 ; Liver and biliary tract disorders in , third trimester O26.613 and Subclinical hypothyroidism E03.9 [place] [address] [place] [address] 75172- 2195 Aug, Abnormal glucose affecting O99.810 [place] [id number] [place] [address] 21477- 4430 Aug, Abnormal glucose affecting O99.810 [place] [address] [place] [address] 36116- 5051 Aug, Second trimester Z34.92 ; Urinary tract infection affecting care of mother in second trimester, antepartum O23.42 ; 25 weeks gestation of Z3A.25 ; Itching L29.9 and BMI 45.0-49.9, adult Z68.42 [place] [address] 44199- 2353 Aug, Acute cystitis without hematuria N30.00 [place] [address] 94321- 4867 Aug, Acute cystitis without hematuria N30.00 [place] [address] 80608- 4259 Aug, Second trimester Z34.92 ; Acute cystitis without hematuria N30.00 ; 22 weeks gestation of Z3A.22 ; Evaluate anatomy not seen on prior sonogram Z04.89 and BMI 45.0-49.9, adult Z68.42 [place] [address] 27487- 5388 Jul, [place] [address] 64472- 7755 Jul, [place] [address] 40253- 3295 Jul, Acquired hypothyroidism E03.9 and Acute cystitis without hematuria N30.00 [place] [address] 34602- 5019 Jul, Acute cystitis without hematuria N30.00 [place] [address] 45352- 1701 Jul, Second trimester Z34.92 ; Subclinical hypothyroidism E03.9 ; Encounter for immunization Z23 ; Acute cystitis without hematuria N30.00 ; 18 weeks gestation of Z3A.18 and Tension headache G44.209 [place] [address] 41490- 6898 Jun, [place] [address] 39857- 5920 12 Sep, 2018 Acquired hypothyroidism E03.9 [place] [address] [place] [id number] [address]- 6756 08 Jun, 2018 Urinary tract infection affecting care of mother in first trimester, antepartum O23.41 [place] [id number] [address]- 4660 07 Jun, 2018 [place] [address] [place] [address]- 7327 Jun, [place] [address], [place] [address]- 1821 Jun, [place] [address] [place] [address] 05265- 0449 Jun, BMI 45.0-49.9, adult Z68.42 ; Multigravida in first trimester Z34.81 and 11 weeks gestation of Z3A.11 [place] [address], [place] [address]- 6344 Jun, [place] [id number] [address]- 3530 Jun, Encounter for test, result unknown Z32.[address] [facility] [address] [address] Sep, Vaginal bleeding, abnormal N93.9 and Pelvic cramping R10.[address] [facility] [address] [address] Jul, Encounter for Depo-Provera contraception Z30.[address] [facility] [address] [address] Apr, Encounter for Depo-Provera contraception Z30.[address] [facility] [address] [address] Apr, Routine gynecological examination Z01.419 and High risk sexual behavior Z72.[address] [facility] [address] [address] Apr, Encounter for initial prescription of injectable contraceptive Z30.[address] [facility] [address] [place] [address] Dec, Dental examination Z01.20 [facility] [place] [address] [place] [address] Dec, Dental examination Z01.20 [facility] [place] [address] [place] [address] Nov, Dental examination Z01.20 [facility] [place] [address] [place] [address] Nov, Dental examination Z01.20 [facility] [place] [address] [place] [address] Oct, Dental examination Z01.20 [facility] [place] [address] [place] [address] Oct, Dental examination Z01.20 and Dental caries on smooth surface penetrating into pulp K02.63 [facility] [id number] [place] [address] 04700- 3300 Jan, [facility] [id number] [place] [address] 06236- 7077 Jan, [facility] [id number] [place] [address] 59733- 0018 Dec, [facility] [id number] [place] [address] 43467- 4430 Dec, [facility] [address] [place] [address] 82871- 5186 Oct, [facility] [id number] [place] [address] 77325- 3734 Oct, [facility] [id number] [place] [address] 81059- 0157 Oct, [facility] [id number] [place] [address] 59452- 8768 Oct, [facility] [id number] [place] [address] 80024- 9886 Oct, [facility] [place] [facility] [address] [id number] [place] [address]- 6516 15 Oct, 2013 [facility] [place] [facility] [address] [id number] [place] [address]- 3515 Oct, [facility] [place] [facility] [address] [id number] [place] [address]- 2496 Oct, [facility] [place] [facility] [address] [id number] [place] [address]- 2446 Oct, [facility] [place] [facility] [address] [id number] [place] [address]- 9607 Sep, [facility] [place] [facility] [address] [id number] [place] [address]- 5870 Sep, [facility] [place] [facility] [address] [id number] [place] [address]- 6063 Sep, [facility] [place] [facility] [address] [id number] [place] [address]- 8836 Sep, [facility] [place] [facility] [address] [id number] [place] [address]- 9676 Aug, [facility] [place] [facility] [address] [id number] [place] [address]- 6217 Aug, [facility] [place] [facility] [address] [id number] [place] [address]- 0327 Aug, [facility] [place] [facility] [address] [id number] [place] [address]- 7699 Jul, [facility] [place] [facility] [address] [id number] [place] [address]- 4184 Jul, [facility] [place] [facility] [address] [id number] [place] [address]- 2301 Jul, [facility] [place] [facility] [address] [id number] [place] [address]- 1866 Jul, [facility] [place] [facility] [address] [id number] [place] [address]- 4054 Jul, [facility] [address] [facility] [id number], [place] [address]- 7997 Jul, [facility] [address] [facility] [id number], [place] [address]- 9946 Jul, [facility] [address] [facility] [id number], [place] [address]- 2305 Jul, IMMUNIZATIONS No Known Immunizations SOCIAL HISTORY Never Assessed REASON FOR VISIT Prescription PLAN OF CARE VITAL SIGNS MEDICATIONS Medication Instructions Dosage Frequency Start Date End Date Duration Status Vitamins - (Dis) Active Ferrous Sulfate Active Ursodiol 300 MG Orally 3 times a day 1 capsule 8h Aug, 30 days Active Levothyroxine Sodium 50 mcg Orally Once a day 1 tablet on an empty stomach in the morning 24h Jun, Active RESULTS No Results PROCEDURES No Known procedures INSTRUCTIONS MEDICATIONS ADMINISTERED No Known Medications MEDICAL (GENERAL) HISTORY Type Description Date Surgical History appendectomy Surgical History section X 2 Hospitalization History Surgery(s)/Childbirth(s)
--- OUTSIDE RECORDS SUMMARY | 2018-11-14 06:34 | XMS REPORT ---
Author Author JENNIE EZIO [facility] Address [address] [place] [address] Care Team Providers Care Sleeping Car Service Attendant Name Role Phone JENNIELYUDMILA HULLHANY Unavailable PROBLEMS Type Condition ICD9-CM Code LAX09-GH Code Onset Dates Condition Status SNOMED Code Problem Previous section complicating O34.219 Active 537298484 Problem Subclinical hypothyroidism E03.9 Active 52793255 Problem Tension headache G44.209 Active [id number] ALLERGIES No Known Allergies ENCOUNTERS Encounter Location Date Diagnosis [place] [address] [address] Aug, [address] [address] Aug, Second trimester Z34.92 ; Acute cystitis without hematuria N30.00 ; 22 weeks gestation of Z3A.22 and Evaluate anatomy not seen on prior sonogram Z04.89 [place] [address] [place] [id number] [place] [address] Jul, [place] [address] [place] [id number] [place] [address] Jul, [place] [address] [address] Jul, Acquired hypothyroidism E03.9 and Acute cystitis without hematuria N30.00 [place] [address] [address] Jul, Acute cystitis without hematuria N30.00 [place] [address] [place] [id number] [place] [address] Jul, Second trimester Z34.92 ; Subclinical hypothyroidism E03.9 ; Encounter for immunization Z23 ; Acute cystitis without hematuria N30.00 ; 18 weeks gestation of Z3A.18 and Tension headache G44.209 [place] [address] [place] [id number] [place] [address] Jun, [place] [address] [place] [id number] [place] [address]- [address] Jun, Acquired hypothyroidism E03.9 [place] [address] [address] 08 Jun, 2018 Urinary tract infection affecting care of mother in first trimester, antepartum O23.41 [place] [address] [address] 07 Jun, 2018 [place] [address] [address] Jun, [place] [address] [address] Jun, [place] [address] [address] Jun, BMI 45.0-49.9, adult Z68.42 ; Multigravida in first trimester Z34.81 and 11 weeks gestation of Z3A.11 [place] [address] [place] [id number] [place] [address] Jun, [place] [address] [address] Jun, Encounter for test, result unknown Z32.00 [facility] [place] [address] [place] [address] Sep, Vaginal bleeding, abnormal N93.9 and Pelvic cramping R10.2 [facility] [place] [address] [place] [address] Jul, Encounter for Depo-Provera contraception Z30.42 [facility] [place] [address] [place] [address] Apr, Encounter for Depo-Provera contraception Z30.42 [facility] [place] [address] [place] [address] Apr, Routine gynecological examination Z01.419 and High risk sexual behavior Z72.51 [facility] [address] [place] [address] Apr, Encounter for initial prescription of injectable contraceptive Z30.013 [facility] [place] [address] [place] [address] Dec, Dental examination Z01.20 [facility] [address] [place] [address] Dec, Dental examination Z01.20 [facility] [address] [place] [address] Nov, Dental examination Z01.20 [facility] [address] [place] [address] Nov, Dental examination Z01.20 [facility] [address] [place] [address] Oct, Dental examination Z01.20 [facility] [address] [place] [address] Oct, Dental examination Z01.20 and Dental caries on smooth surface penetrating into pulp K02.63 [facility] [address] [address] Jan, [facility] [id number] [place] [address]- 9[address] Jan, [facility] [address] [place] [id number] [place] [address]- [address] Dec, [facility] [address] [place] [id number] [place] [address]- 288[address] Dec, [facility] [address] [place] [id number] [place] [address]- 88[address] Oct, [facility] [address] [place] [id number] [place] [address]- [address] Oct, [facility] [address] [id number] [place] [address] Oct, [facility] [place] [facility] [address] [id number] [place] [address] Oct, [facility] [place] [facility] [address] [id number] [place] [address] Oct, [facility] [place] [facility] [address] [id number] [place] [address] Oct, [facility] [place] [facility] [address] [id number] [place] [address] 8[address] Oct, [facility] [place] [facility] [address] [id number] [place] [address] 95[address] Oct, [facility] [place] [facility] [address] [id number] [place] [address] 7[address] Oct, [facility] [place] [facility] [address] [id number] [place] [address] 8[address] Sep, [facility] [place] [facility] [address] [id number] [place] [address] 39[address] Sep, [facility] [place] [facility] [address] [id number] [place] [address] 3[address] Sep, [facility] [place] [facility] [address] [id number] [place] [address] Sep, [facility] [place] [facility] [address] [id number] [place] [address] Aug, [facility] [place] [facility] [address] [id number] [place] [address] Aug, [facility] [place] [facility] [address] [id number] [place] [address]- 3[address] Aug, [facility] [place] [facility] [address] [id number] [place] [address] 5[address] Jul, [facility] [place] [facility] [address] [id number] [place] [address]- 95[address] Jul, [facility] [address] [facility] [place] [id number], [place] [address] Jul, [facility] [address] [facility] [id number], [place] [address] Jul, [facility] [address] [facility] [id number], [place] [address] 270[address] Jul, [facility] [address] [facility] [id number], [place] [address]- 8[address] Jul, [facility] [address] [facility] [id number] [address] Jul, [facility] [address] [facility] [id number], [place] [address] Jul, IMMUNIZATIONS No Known Immunizations SOCIAL HISTORY Never Assessed REASON FOR VISIT OB 4wk f/u -- megha lindsey PLAN OF CARE Activity Details Follow Up 4 Weeks, 4 Weeks Reason: Pending Test Ultrasound : OB, Follow-up VITAL SIGNS Height 58 in 2018-08-07 Weight 232.0 lbs 2018-08-07 Temperature 97.0 degrees Fahrenheit 2018-08-07 Heart Rate 88 bpm 2018-08-07 Respiratory Rate 20 2018-08-07 BMI 48.488 kg/m2 2018-08-07 Blood pressure systolic 126 mmHg 2018-08-07 Blood pressure diastolic 80 mmHg 2018-08-07 MEDICATIONS Medication Instructions Dosage Frequency Start Date End Date Duration Status Levothyroxine Sodium 50 mcg Orally Once a day 1 tablet on an empty stomach in the morning 24h 12 Jun, 2018 30 day(s) Active Ferrous Sulfate Active Cephalexin 500 mg Orally every 12 hrs 1 capsule 12h Jul, Aug, 7 days Active Vitamins - (Dis) Active RESULTS Name Result Date Reference Range UA OB DIP (IN HOUSE) 2018-08-07 Glucose neg Protein neg PROCEDURES Procedure Date Ordered Result Body Site URINE-NO MICRO Aug 07, 2018 INSTRUCTIONS MEDICATIONS ADMINISTERED No Known Medications MEDICAL (GENERAL) HISTORY Type Description Date Surgical History appendectomy Surgical History section X 2 Hospitalization History Surgery(s)/Childbirth(s)
--- OUTSIDE RECORDS SUMMARY | 2018-11-14 06:34 | XMS REPORT ---
Author Author JENNIE EZIO [facility] Address [address] [place] [address] Care Team Providers Care Cosmetics Counter Manager Name Role Phone JENNIELYUDMILA HULLHANY Unavailable PROBLEMS Type Condition ICD9-CM Code OSO06-GM Code Onset Dates Condition Status SNOMED Code Problem Previous section complicating O34.219 Active 249611238 Problem Subclinical hypothyroidism E03.9 Active 05280000 Problem Tension headache G44.209 Active 575831650 ALLERGIES No Information ENCOUNTERS Encounter Location Date Diagnosis [place] [address] [place] [id number] [place] [address] Aug, [place] [id number] [place] [address] 46643- 2806 Aug, Acute cystitis without hematuria N30.00 [place] [id number] [place] [address] 476[address]- 4653 Aug, Second trimester Z34.92 ; Acute cystitis without hematuria N30.00 ; 22 weeks gestation of Z3A.22 ; Evaluate anatomy not seen on prior sonogram Z04.89 and BMI 45.0-49.9, adult Z68.42 [place] [address] [place] [id number] [place] [address]- 9653 Jul, [place] [address] [place] [id number] [place] [address] 47823- 7677 Jul, [place] [address] [place] [id number] [place] [address] 70646- 0863 Jul, Acquired hypothyroidism E03.9 and Acute cystitis without hematuria N30.00 [place] [address] [place] [id number] [place] [address]20- 4310 Jul, Acute cystitis without hematuria N30.00 [place] [address] [place] [id number] [place] [address] 66[address]- 0274 02 Jul, 2018 Second trimester Z34.92 ; Subclinical hypothyroidism E03.9 ; Encounter for immunization Z23 ; Acute cystitis without hematuria N30.00 ; 18 weeks gestation of Z3A.18 and Tension headache G44.209 [place] [address] [address]- [address] 24 Jun, 2018 [place] [address] [address]- [address]85 12 Jun, 2018 Acquired hypothyroidism E03.9 [place] [address] [address]- 18[address] 08 Jun, 2018 Urinary tract infection affecting care of mother in first trimester, antepartum O23.41 [place] [address] [address]- [address] 07 Jun, 2018 [place] [address] [place] [id number] [place] [address] 12433- 1137 Jun, [place] [address] [address]- 4541 Jun, [place] [address] [place] [id number] [place] [address]89- 0510 Jun, BMI 45.0-49.9, adult Z68.42 ; Multigravida in first trimester Z34.81 and 11 weeks gestation of Z3A.11 [place] [address] [place] [id number] [place] [address] 12379- 9317 Jun, [place] [address] [address]- [address] Jun, Encounter for test, result unknown Z32.00 [facility] [place] [address] [place] [address] Sep, Vaginal bleeding, abnormal N93.9 and Pelvic cramping R10.2 [facility] [place] [address] [place] [address] Jul, Encounter for Depo-Provera contraception Z30.42 [facility] [place] [address] [place] [address] Apr, Encounter for Depo-Provera contraception Z30.42 [facility] [place] [address] [place] [address] Apr, Routine gynecological examination Z01.419 and High risk sexual behavior Z72.51 [facility] [place] [address] [place] [address] Apr, Encounter for initial prescription of injectable contraceptive Z30.[address] [address] Dec, Dental examination Z01.[address] [address] [place] [address] Dec, Dental examination Z01.[address] [facility] [place] [address] [place] [address] Nov, Dental examination Z01.20 [facility] [place] [address] [place] [address] Nov, Dental examination Z01.[address] [facility] [address] [place] [address] Oct, Dental examination Z01.20 [facility] [place] [address] [place] [address] Oct, Dental examination Z01.20 and Dental caries on smooth surface penetrating into pulp K02.63 [facility] [address], [place] [address] Jan, [facility] [address], [place] [address]- 8[address] Jan, [facility] [id number] [place] [address]6583- 4293 Dec, [facility] [address], [place] [address]- [address] Dec, [facility] [address] [place] [id number] [place] [address] Oct, [facility] [address] [id number] [place] [address]- 54[address] Oct, [facility] [place] [facility] [address] [id number] [place] [address]- 5396 Oct, [facility] [place] [facility] [address] [id number] [place] [address]- 3[address] Oct, [facility] [place] [facility] [address] [id number] [place] [address]- 6910 Oct, [facility] [place] [facility] [address] [id number] [place] [address]- 2961 Oct, [facility] [place] [facility] [address] [id number] [place] [address]- 6186 Oct, [facility] [place] [facility] [address] [id number] [place] [address]- 0139 Oct, [facility] [place] [facility] [address] [id number] [place] [address]- 7108 Oct, [facility] [place] [facility] [address] [id number] [place] [address]- 2807 Sep, [facility] [place] [facility] [address] [id number] [place] [address]- 4839 Sep, [facility] [place] [facility] [address] [id number] [place] [address]- 8503 Sep, [facility] [place] [facility] [address] [id number] [place] [address]- 2401 Sep, [facility] [place] [facility] [address] [id number] [place] [address]- 6788 Aug, [facility] [place] [facility] [address] [id number] [place] [address]- 4638 Aug, [facility] [place] [facility] [address] [id number] [place] [address]- 2056 Aug, [facility] [address] [facility] [id number] [address] Jul, [facility] [address] [facility] [id number] [address] Jul, [facility] [address] [facility] [id number] [address] Jul, [facility] [address] [facility] [id number], [place] [address]- 8914 Jul, [facility] [address] Jul, [facility] [address] Jul, [facility] [address], [place] [address]- 6020 Jul, [facility] [address] [address]- [address] Jul, IMMUNIZATIONS No Known Immunizations SOCIAL HISTORY Never Assessed REASON FOR VISIT Lab (walk-in) PLAN OF CARE Activity Details Pending Test CULTURE, URINE VITAL SIGNS MEDICATIONS Unknown Medications RESULTS No Results PROCEDURES Procedure Date Ordered Result Body Site URINE CULTURE/COLONY COUNT Aug 15, 2018 INSTRUCTIONS MEDICATIONS ADMINISTERED No Known Medications MEDICAL (GENERAL) HISTORY Type Description Date Surgical History appendectomy Surgical History section X 2 Hospitalization History Surgery(s)/Childbirth(s)
--- OUTSIDE RECORDS SUMMARY | 2018-11-14 06:34 | XMS REPORT ---
Author Author EZIO SCHNEIDER [facility] Address [address] [place] [address] Care Team Providers Care Neurodiagnostic Technologist Name Role Phone EZIO SCHNEIDER Unavailable PROBLEMS Type Condition ICD9-CM Code IEI83-CH Code Onset Dates Condition Status SNOMED Code Problem Previous section complicating O34.219 Active 276245963 Problem Subclinical hypothyroidism E03.9 Active 33109020 Problem Tension headache G44.209 Active 571613829 ALLERGIES No Information ENCOUNTERS Encounter Location Date Diagnosis [place] [id number] [place] [address] 09574- 2152 18 Sep, 2018 [place] [id number] [place] [address] 50148- 5800 21 Aug, 2018 Second trimester Z34.92 ; Urinary tract infection affecting care of mother in second trimester, antepartum O23.42 ; 25 weeks gestation of Z3A.25 ; Itching L29.9 and BMI 45.0-49.9, adult Z68.42 [place] [address] [place] [id number] [place] [address] 81424- 7311 13 Aug, 2018 Acute cystitis without hematuria N30.00 [place] [address] [place] [id number] [place] [address] 05207- 6172 09 Aug, 2018 Acute cystitis without hematuria N30.00 [place] [address] [place] [id number] [place] [address] 58945- 9193 01 Aug, 2018 Second trimester Z34.92 ; Acute cystitis without hematuria N30.00 ; 22 weeks gestation of Z3A.22 ; Evaluate anatomy not seen on prior sonogram Z04.89 and BMI 45.0-49.9, adult Z68.42 [place] [id number] [place] [address] 87131- 4083 Jul, [facility] [address] [place] [id number] [place] [address] 69909- 5680 Jul, [place] [address] [place] [id number] [place] [address] 35950- 8503 Jul, Acquired hypothyroidism E03.9 and Acute cystitis without hematuria N30.00 [place] [address] [address]61- 0775 Jul, Acute cystitis without hematuria N30.00 [place] [address] [place] [id number] [place] [address] 75308- 7022 Jul, Second trimester Z34.92 ; Subclinical hypothyroidism E03.9 ; Encounter for immunization Z23 ; Acute cystitis without hematuria N30.00 ; 18 weeks gestation of Z3A.18 and Tension headache G44.209 [place] [address] [place] [id number] [place] [address] 36280- 2324 Jun, [place] [address] [place] [id number] [place] [address] 05043- 9036 Jun, Acquired hypothyroidism E03.9 [place] [address] [place] [id number] [place] [address] 20498- 8529 08 Jun, 2018 Urinary tract infection affecting care of mother in first trimester, antepartum O23.41 [place] [address] [place] [id number] [place] [address] 65082- 4768 07 Jun, 2018 [place] [address] [place] [id number] [place] [address] 59545- 5507 Jun, [place] [address] [place] [id number] [place] [address] 64190- 9564 Jun, [place] [address] [place] [id number] [place] [address] 13403- 0499 Jun, BMI 45.0-49.9, adult Z68.42 ; Multigravida in first trimester Z34.81 and 11 weeks gestation of Z3A.11 [place] [id number] [address]- 0701 Jun, [place] [id number] [address]- 7840 Jun, Encounter for test, result unknown Z32.00 [facility] [place] [address] [place] [address] Sep, Vaginal bleeding, abnormal N93.9 and Pelvic cramping R10.[address] [address] Jul, Encounter for Depo-Provera contraception Z30.[address] [address] Apr, Encounter for Depo-Provera contraception Z30.[address] [address] Apr, Routine gynecological examination Z01.419 and High risk sexual behavior Z72.51 [facility] [address] [address] Apr, Encounter for initial prescription of injectable contraceptive Z30.[address] [address] Dec, Dental examination Z01.[address] [address] Dec, Dental examination Z01.20 [facility] [place] [address] [place] [address] Nov, Dental examination Z01.20 [facility] [place] [address] [place] [address] Nov, Dental examination Z01.[address] [address] Oct, Dental examination Z01.20 [facility] [place] [address] [place] [address] Oct, Dental examination Z01.20 and Dental caries on smooth surface penetrating into pulp K02.63 [place] [id number] [address]- 1643 14 Jan, 2015 [facility] [address] [id number] [place] [address]- 3090 13 Jan, 2015 [facility] [address] [id number] [place] [address]- 7424 Dec, [facility] [address] [id number] [place] [address]- 4095 Dec, [facility] [address] [id number] [place] [address]- 4455 Oct, [facility] [address] [id number] [place] [address]- 2347 Oct, [facility] [address] [id number] [place] [address]- 4311 Oct, [facility] [address] [id number] [place] [address]- 9102 Oct, [facility] [address] [id number] [place] [address]- 5679 Oct, [facility] [address] [id number] [place] [address]- 5205 Oct, [facility] [address] [id number] [place] [address]- 6405 Oct, [facility] [address] [id number] [place] [address]- 8471 Oct, [facility] [address] [id number] [place] [address]- 7052 Oct, [facility] [address] [id number] [place] [address]- 7013 Sep, [facility] [place] [facility] [address] [id number] [place] [address]- 3520 Sep, [facility] [address] [id number] [place] [address]- 6172 Sep, [facility] [address] [address]- 8179 Sep, [facility] [address] [place] [address] 89086- 5813 Aug, [facility] [address] [address]- 2513 Aug, [facility] [address] [place] [address] [id number] [place] [address] 82432- 2540 Aug, [facility] [id number] [place] [address] 436479- 8827 Jul, [facility] [address] [place] [address] [id number] [place] [address] 419639- 5366 Jul, [facility] [address] [place] [address] [id number] [place] [address] 186619- 2111 Jul, [facility] [address] [place] [address] [id number] [place] [address] 629529- 0318 Jul, [facility] [address] [place] [address] 24279- 9889 Jul, [facility] [address] [place] [address] 11982- 0898 Jul, [facility] [address] [address]- 9286 Jul, [facility] [id number] [place] [address] 216479- 1289 Jul, IMMUNIZATIONS No Known Immunizations SOCIAL HISTORY Never Assessed REASON FOR VISIT OB 4wk f/u, ob urine dip-awoods PLAN OF CARE Activity Details Follow Up 3 Weeks, 3 Weeks, 3 Weeks Reason: Pending Test CMP Pending Test GLUCOSE BARNEY 1 HOUR Pending Test CBC Pending Test BILE ACIDS, FRACTIONATED LCMS VITAL SIGNS Height 58 in 2018-08-27 Weight 227.8 lbs 2018-08-27 Temperature 98.6 degrees Fahrenheit 2018-08-27 Heart Rate 90 bpm 2018-08-27 Respiratory Rate 20 2018-08-27 BMI 47.61 kg/m2 2018-08-27 Blood pressure systolic 102 mmHg 2018-08-27 Blood pressure diastolic 70 mmHg 2018-08-27 MEDICATIONS Medication Instructions Dosage Frequency Start Date End Date Duration Status Levothyroxine Sodium 50 mcg Orally Once a day 1 tablet on an empty stomach in the morning 24h Jun, 30 day(s) Active Monurol 3 GM Orally Once a day 1 packet 24h Aug, 1 dose Active Vitamins - (Dis) Active Ferrous Sulfate Active RESULTS Name Result Date Reference Range GLUCOSE FINGERSTICK (IN HOUSE) 2018-08-27 GLU FINGERSTICK 169 PC 1 hour after gtt Lot # [id number] Exp date 01/09/19 UA OB DIP (IN HOUSE) 2018-08-27 Glucose neg Protein neg PROCEDURES Procedure Date Ordered Result Body Site URINE-NO MICRO Aug 27, 2018 COMPREHEN METABOLIC PANEL Aug 27, 2018 GLUCOSE BLOOD TEST Aug 27, 2018 COMPLETE CBC W/AUTO DIFF WBC Aug 27, 2018 COLUMN CHROMOTOGRAPHY, QUANT Aug 27, 2018 GLUCOSE TEST Aug 27, 2018 INSTRUCTIONS MEDICATIONS ADMINISTERED No Known Medications MEDICAL (GENERAL) HISTORY Type Description Date Surgical History appendectomy Surgical History section X 2 Hospitalization History Surgery(s)/Childbirth(s)
--- OUTSIDE RECORDS SUMMARY | 2018-11-14 06:34 | XMS REPORT ---
Author Author JENNIE EZIO [facility] Address [address] [place] [address] Care Team Providers Care Manager Rn Case Name Role Phone JENNIEFRAN HULLY Unavailable PROBLEMS Type Condition ICD9-CM Code [id number] Code Onset Dates Condition Status SNOMED Code Problem Subclinical hypothyroidism E03.9 Active 73294317 Problem Tension headache G44.209 Active 980215013 ALLERGIES No Information ENCOUNTERS Encounter Location Date Diagnosis [place] [address] [address]- 6660 Aug, [place] [address] 28863- 7684 Jul, [place] [address] 42067- 4293 Jul, Acquired hypothyroidism E03.9 and Acute cystitis without hematuria N30.00 [place] [address] 25625- 8063 Jul, Acute cystitis without hematuria N30.00 [place] [address] [place] [id number] [place] [address] 71875- 9795 Jul, Second trimester Z34.92 ; Subclinical hypothyroidism E03.9 ; Encounter for immunization Z23 ; Acute cystitis without hematuria N30.00 ; 18 weeks gestation of Z3A.18 and Tension headache G44.209 [place] [address] 55[address]- 8027 Jun, [place] [address] 71655- 7747 Jun, Acquired hypothyroidism E03.9 [place] [address] 30633- 9311 Jun, Urinary tract infection affecting care of mother in first trimester, antepartum O23.41 [place] [address] [place] [id number] [address]- 3104 Jun, [facility] [address] [place] [address] [id number] [address]- 5146 Jun, [place] [address] [place] [id number] [address]- 0627 Jun, [place] [address], [place] [address]- 9224 Jun, BMI 45.0-49.9, adult Z68.42 ; Multigravida in first trimester Z34.81 and 11 weeks gestation of Z3A.11 [place] [address] [address]- 0788 Jun, [place] [address] [address]- 8754 Jun, Encounter for test, result unknown [facility]32.00 [facility] [address] [address] Sep, Vaginal bleeding, abnormal N93.9 and Pelvic cramping [facility]10.2 [facility] [address] [address] Jul, Encounter for Depo-Provera contraception Z30.[address] [address] Apr, Encounter for Depo-Provera contraception Z30.[address] [address] Apr, Routine gynecological examination Z01.419 and High risk sexual behavior Z72.[address] [address] Apr, Encounter for initial prescription of injectable contraceptive Z30.013 [facility] [address] [address] Dec, Dental examination Z01.20 [facility] [place] [address] [facility] [place] [address] Dec, Dental examination Z01.20 [facility] [place] [address] [place] [address] Nov, Dental examination Z01.20 [facility] [place] [address] [place] [address] Nov, Dental examination Z01.20 [facility] [place] [address] [place] [address] Oct, Dental examination Z01.20 [facility] [place] [address] [place] [address] Oct, Dental examination Z01.20 and Dental caries on smooth surface penetrating into pulp K02.63 [facility] [address] [id number], [place] [address]- 2284 Jan, [facility] [id number] [place] [address] 62512- 3072 Jan, [facility] [address] [place] [id number] [place] [address] 31596- 3111 Dec, [facility] [id number] [place] [address] 21365- 5887 Dec, [facility] [address] [place] [address] [id number] [address]- 0787 Oct, [facility] [address] [id number], [place] [address]- 7507 Oct, [facility] [address] [id number], [place] [address]- 1024 Oct, [facility] [address] [facility] [id number] [place] [address] 21898- 3898 Oct, [facility] [address] [facility] [id number], [place] [address]- 5881 Oct, [facility] [address] [place] [id number] [place] [address] 20393- 9585 Oct, [facility] [place] [facility] [address] [id number] [place] [address]- 4276 Oct, [facility] [place] [facility] [address] [id number] [place] [address]- 5753 Oct, [facility] [place] [facility] [address] [id number] [place] [address]- 2079 Oct, [facility] [place] [facility] [address] [id number] [place] [address]- 6508 Sep, [facility] [place] [facility] [address] [id number] [place] 6184 Sep, [facility] [place] [facility] [address] [id number] [place] [address]- 2280 Sep, [facility] [place] [facility] [address] [facility] [id number] [place] [address]- 1650 Sep, [facility] [place] [facility] [address] [id number], [place] [address]- 5319 Aug, [facility] [place] [facility] [address] [id number] [place] [address]- 8438 Aug, [facility] [place] [facility] [address] [facility] [id number], [place] [address]- 6240 Aug, [facility] [place] [facility] [address] [facility] [id number], [place] [address]- 5932 Jul, [facility] [place] [facility] [address] [id number], [place] [address]- 6191 Jul, [facility] [place] [facility] [address] [id number], [place] [address]- 0695 Jul, [facility] [place] [facility] [address] [id number], [place] [address]- 8646 30 Jul, 2013 [facility] [place] [facility] [address] [id number], [place] [address]- 2265 29 Jul, 2013 [facility] [place] [facility] [address] [id number], [place] [address]- 8672 Jul, [facility] [address] [facility] [id number] [place] [address]- 3845 Jul, [facility] [address] [facility] [id number], [place] [address]- 0350 Jul, IMMUNIZATIONS No Known Immunizations SOCIAL HISTORY Never Assessed REASON FOR VISIT Medication Clarification PLAN OF CARE VITAL SIGNS MEDICATIONS Unknown Medications RESULTS No Results PROCEDURES No Known procedures INSTRUCTIONS MEDICATIONS ADMINISTERED No Known Medications MEDICAL (GENERAL) HISTORY Type Description Date Surgical History appendectomy Surgical History section X 2 Hospitalization History Surgery(s)/Childbirth(s)
--- OUTSIDE RECORDS SUMMARY | 2018-11-14 06:34 | XMS REPORT ---
Author Author JENNIE EZIO [facility] Address [address] [place] [address] Care Team Providers Care Sterilization Specialist Name Role Phone JENNIELYUDMILA HULLHANY Unavailable PROBLEMS Type Condition ICD9-CM Code FPX82-PM Code Onset Dates Condition Status SNOMED Code Problem Subclinical hypothyroidism E03.9 Active 19670385 Problem Tension headache G44.209 Active 103474773 ALLERGIES No Information ENCOUNTERS Encounter Location Date Diagnosis [place] [address] [place] [id number] [place] [address] 27392- 0293 Aug, [place] [address] [address]- 8851 Jul, Acute cystitis without hematuria N30.00 [place] [address] [place] [id number] [place] [address] 66103- 2458 02 Jul, 2018 Second trimester Z34.92 ; Subclinical hypothyroidism E03.9 ; Encounter for immunization Z23 ; Acute cystitis without hematuria N30.00 ; 18 weeks gestation of Z3A.18 and Tension headache G44.209 [place] [address] [place] [id number] [place] [address] 00598- 9213 Jun, [place] [address] [place] [id number] [place] [address] 65273- 1478 Jun, Acquired hypothyroidism E03.9 [place] [address] [address]883- 9731 08 Jun, 2018 Urinary tract infection affecting care of mother in first trimester, antepartum O23.41 [place] [address] [place] [id number] [place] [address] 85712- 8148 Jun, [place] [address] 19578- 7959 Jun, [facility] [address] [facility] [id number], [place] [address]- 4428 Jun, [place] [id number], [place] [address]- 5379 Jun, BMI 45.0-49.9, adult Z68.42 ; Multigravida in first trimester Z34.81 and 11 weeks gestation of Z3A.11 [place] [id number], [place] [address]- 8248 Jun, [place] [id number], [place] [address]- 7598 Jun, Encounter for test, result unknown Z32.[address] [address] Sep, Vaginal bleeding, abnormal N93.9 and Pelvic cramping R10.[address] [address] Jul, Encounter for Depo-Provera contraception Z30.[address] [address] Apr, Encounter for Depo-Provera contraception Z30.[address] [address] Apr, Routine gynecological examination Z01.419 and High risk sexual behavior Z72.[address] [address] Apr, Encounter for initial prescription of injectable contraceptive Z30.[address] [address] Dec, Dental examination Z01.[address] [address] Dec, Dental examination Z01.[address] [address] Nov, Dental examination Z01.[address] [place] [address] 15 Nov, 2015 Dental examination Z01.20 [facility] [place] [address] [place] [address] Oct, Dental examination Z01.20 [facility] [place] [address] [place] [address] Oct, Dental examination Z01.20 and Dental caries on smooth surface penetrating into pulp K02.63 [facility] [id number] [place] [address] 31441- 1116 Jan, [facility] [address] [id number], [place] [address]- 7484 Jan, [facility] [address] [facility] [id number] [place] [address] 37375- 4918 Dec, [facility] [place] [facility] [address] [facility] [id number], [place] [address]- 3410 Dec, [facility] [address] [facility] [id number], [place] [address]- 5605 Oct, [facility] [place] [facility] [address] [id number], [place] [address]- 5410 Oct, [facility] [address] [facility] [id number], [place] [address]- 3825 Oct, [facility] [place] [facility] [address] [id number], [place] [address]- 5142 Oct, [facility] [place] [facility] [address] [facility] [id number] [address]- 7970 Oct, [facility] [place] [facility] [address] [facility] [id number], [place] [address]- 3832 Oct, [facility] [place] [facility] [address] [facility] [id number], [place] [address]- 3218 Oct, [facility] [place] [facility] [address] [facility] [id number], [place] [address]- 0179 Oct, [facility] [place] [facility] [address] [facility] [id number] [place] [address]- 8940 Oct, [facility] [address] [facility] [id number] [place] [address]- 3169 Sep, [facility] [address] [facility] [id number] [place] [address]- 4231 Sep, [facility] [address] [facility] [id number] [place] [address]- 6077 Sep, [facility] [address] [facility] [id number] [place] [address]- 4835 Sep, [facility] [address] [facility] [id number] [place] [address]- 5656 Aug, [facility] [address] [facility] [id number] [place] [address]- 5316 Aug, [facility] [address] [facility] [id number] [place] [address]- 5580 Aug, [facility] [address] [facility] [id number], [place] [address]- 2138 Jul, [facility] [address] [facility] [id number] [place] 3789 Jul, [facility] [address] [facility] [id number], [place] [address]- 7704 Jul, [facility] [address] [facility] [id number]- 2335 Jul, [facility] [address] [facility] [id number][place] [address] Jul, [facility] [address] [facility] [id number][place] [address] Jul, [facility] [address] [facility] [id number] [address] Jul, [facility] [address] [facility] [id number][place] [address] Jul, IMMUNIZATIONS Vaccine Route Administration Date Status FLULAVAL QUAD 0.5ML (6 MO & UP) 2017 IM Intramuscular Jul 08, 2018 Administered SOCIAL HISTORY Never Assessed REASON FOR VISIT OB 4wk f/u, ua ob dip-awoods PLAN OF CARE Activity Details Follow Up 4 Weeks, 4 Weeks Reason: Pending Test Ultrasound : OB, Complete >14 WEEKS VITAL SIGNS Height 58 in 2018-07-08 Weight 230.8 lbs 2018-07-08 Temperature 97.6 degrees Fahrenheit 2018-07-08 Heart Rate 96 bpm 2018-07-08 Respiratory Rate 20 2018-07-08 BMI 48.23 kg/m2 2018-07-08 Blood pressure systolic 120 mmHg 2018-07-08 Blood pressure diastolic 82 mmHg 2018-07-08 MEDICATIONS Medication Instructions Dosage Frequency Start Date End Date Duration Status Levothyroxine Sodium 50 mcg Orally Once a day 1 tablet on an empty stomach in the morning 24h Jun, 30 day(s) Active Vitamins - (Dis) Active Ferrous Sulfate Active RESULTS No Results PROCEDURES Procedure Date Ordered Result Body Site FLULAVAL QUAD 0.5ML (6 MO AND UP) 2018 Jul 08, 2018 SINGLE IMMUNIZATION ADMIN Jul 08, 2018 URINE-NO MICRO Jul 08, 2018 URINE CULTURE/COLONY COUNT Jul 08, 2018 CHORIONIC GONADOTROPIN TEST Jul 08, 2018 VENIPUNCT, ROUTINE* Jul 08, 2018 ALPHA-FETOPROTEIN, SERUM Jul 08, 2018 CHEMILUMINESCENT ASSAY Jul 08, 2018 ASSAY OF ESTRIOL Jul 08, 2018 INHIBIN A Jul 08, 2018 INSTRUCTIONS MEDICATIONS ADMINISTERED No Known Medications MEDICAL (GENERAL) HISTORY Type Description Date Surgical History appendectomy Surgical History section X 2 Hospitalization History Surgery(s)/Childbirth(s)
--- OUTSIDE RECORDS SUMMARY | 2018-11-14 06:34 | XMS REPORT ---
Author Author JENNIE EZIO [facility] Address [address] [place] [address] Care Team Providers Care Massage Therapy Instructor Name Role Phone JENNIEFRAN HULLY Unavailable PROBLEMS Type Condition ICD9-CM Code KZZ84-NI Code Onset Dates Condition Status SNOMED Code Problem Subclinical hypothyroidism E03.9 Active 67538655 Problem Tension headache G44.209 Active [id number] ALLERGIES No Information ENCOUNTERS Encounter Location Date Diagnosis [place] [address] [address] Aug, [place] [address] [address] Jul, [facility] [address] [address] Jul, [place] [address] [address] Jul, Acquired hypothyroidism E03.9 and Acute cystitis without hematuria N30.00 [place] [address] [place] [id number] [place] [address]98- 5648 Jul, Acute cystitis without hematuria N30.00 [place] [address] [address] Jul, Second trimester Z34.92 ; Subclinical hypothyroidism E03.9 ; Encounter for immunization Z23 ; Acute cystitis without hematuria N30.00 ; 18 weeks gestation of Z3A.18 and Tension headache G44.209 [facility] [address] [place] [address] [id number] [place] [address]406- 0842 Jun, [place] [address] [address] 2745 Jun, Acquired hypothyroidism E03.9 [place] [address] [place] [address] [id number] [address] 08 Jun, 2018 Urinary tract infection affecting care of mother in first trimester, antepartum O23.41 [place] [address] [address] 07 Jun, 2018 [place] [address] [address] 67[address] Jun, [place] [address] [address] Jun, [place] [address] [place] [address] 91292- 6738 Jun, BMI 45.0-49.9, adult Z68.42 ; Multigravida in first trimester Z34.81 and 11 weeks gestation of Z3A.11 [place] [address] [address] 64[address] Jun, [place] [address] [place] [id number] [address] Jun, Encounter for test, result unknown [facility]32.00 [facility] [address] [place] [address] Sep, Vaginal bleeding, abnormal N93.9 and Pelvic cramping R10.2 [facility] [place] [address] [place] [address] Jul, Encounter for Depo-Provera contraception Z30.42 [facility] [address] [place] [address] Apr, Encounter for Depo-Provera contraception Z30.42 [facility] [address] [place] [address] Apr, Routine gynecological examination Z01.419 and High risk sexual behavior Z72.51 [facility] [address] [place] [address] Apr, Encounter for initial prescription of injectable contraceptive Z30.013 [facility] [place] [address] [place] [address] Dec, Dental examination Z01.20 [facility] [place] [address] [place] [address] Dec, Dental examination Z01.20 [facility] [place] [address] [place] [address] Nov, Dental examination Z01.20 [facility] [place] [address] [place] [address] Nov, Dental examination Z01.20 [facility] [place] [address] [place] [address] Oct, Dental examination Z01.20 [facility] [place] [address] [place] [address] Oct, Dental examination Z01.20 and Dental caries on smooth surface penetrating into pulp K02.63 [facility] [address] [place] [address] [id number] [place] [address] 11649- 8996 Jan, [facility] [address] [place] [id number] [place] [address]31- 0280 Jan, [facility] [address] [place] [id number] [place] [address] 05338- 3758 Dec, [facility] [address] [place] [address] [id number] [place] [address] 66637- 4411 Dec, [facility] [address] [place] [id number] [place] [address] 56231- 0846 Oct, [facility] [address] [place] [address] [id number] [place] [address] 18016- 1699 Oct, [facility] [address] [place] [id number] [place] [address] 62297- 3526 Oct, [facility] [address] [place] [id number] [place] [address] 40172- 7666 Oct, [facility] [address] [place] [id number] [place] [address] 06792- 7406 Oct, [facility] [place] [facility] [address] [id number] [place] [address] 0[address] 15 Oct, 2013 [facility] [place] [facility] [address] [id number] [place] [address] 4[address] Oct, [facility] [place] [facility] [address] [id number] [place] [address]- 8355 Oct, [facility] [place] [facility] [address] [id number] [place] [address]- 7575 Oct, [facility] [place] [facility] [address] [id number] [place] [address]- 7388 Sep, [facility] [place] [facility] [address] [id number] [place] [address]- 9031 Sep, [facility] [place] [facility] [address] [id number] [place] [address]- 6[address] Sep, [facility] [place] [facility] [address] [id number] [place] [address]- 1500 Sep, [facility] [place] [facility] [address] [id number] [place] [address]- 5943 Aug, [facility] [place] [facility] [address] [id number] [address]- 4166 Aug, [facility] [place] [facility] [address] [id number] [address]- 7830 Aug, [facility] [place] [facility] [address] [id number] [address]- 6759 Jul, [facility] [place] [facility] [address] [id number] [place] [address]- 9070 Jul, [facility] [place] [facility] [address] [id number] [place] [address]- 8816 Jul, [facility] [place] [facility] [address] [id number] [address]- 4229 Jul, [facility] [place] [facility] [address] [id number] [address]- 5976 Jul, [facility] [address] [facility] [id number] [address]- 8986 Jul, [facility] [address] [facility] [id number] [address]- 6496 Jul, [facility] [address] [facility] [id number] [address]- 2556 Jul, IMMUNIZATIONS No Known Immunizations SOCIAL HISTORY Never Assessed REASON FOR VISIT med order PLAN OF CARE VITAL SIGNS MEDICATIONS Medication Instructions Dosage Frequency Start Date End Date Duration Status Cephalexin 500 mg Orally every 12 hrs 1 capsule 12h Jul, Aug, 7 days Active Levothyroxine Sodium 50 mcg Orally Once a day 1 tablet on an empty stomach in the morning 24h Jun, 30 day(s) Active RESULTS No Results PROCEDURES No Known procedures INSTRUCTIONS MEDICATIONS ADMINISTERED No Known Medications MEDICAL (GENERAL) HISTORY Type Description Date Surgical History appendectomy Surgical History section X 2 Hospitalization History Surgery(s)/Childbirth(s)
--- OUTSIDE RECORDS SUMMARY | 2018-11-14 06:34 | XMS REPORT ---
Author Author JENNIE EZIO [facility] Address [address] [place] [address] Care Team Providers Care Bread And Pastry Baker Name Role Phone JENNIEFRAN HULLY Unavailable PROBLEMS Type Condition ICD9-CM Code TGA73-VX Code Onset Dates Condition Status SNOMED Code Problem Previous section complicating O34.219 Active 662458996 Problem Subclinical hypothyroidism E03.9 Active 71064297 Problem Tension headache G44.209 Active 883649481 ALLERGIES No Information ENCOUNTERS Encounter Location Date Diagnosis [place] [address] [place] [id number] [place] [address]33[address] 27[address] Aug, [place] [address] [place] [id number] [place] [address] 36255- 3632 Aug, Acute cystitis without hematuria N30.00 [place] [address] [place] [id number] [place] [address] 83563- 5733 Aug, Acute cystitis without hematuria N30.00 [place] [address] [place] [id number] [place] [address] 26791- 6175 Aug, Second trimester Z34.92 ; Acute cystitis without hematuria N30.00 ; 22 weeks gestation of Z3A.22 ; Evaluate anatomy not seen on prior sonogram Z04.89 and BMI 45.0-49.9, adult Z68.42 [place] [address] [place] [id number] [place] [address] 22399- 4496 Jul, [place] [address] [place] [id number] [place] [address] 75950- 4426 Jul, [place] [address] [place] [id number] [place] [address] 52642- 2817 Jul, Acquired hypothyroidism E03.9 and Acute cystitis without hematuria N30.00 [place] [address] [place] [id number] [place] [address] 39859- 1564 09 Jul, 2018 Acute cystitis without hematuria N30.00 [place] [address] [place] [id number] [place] [address] 63492- 6938 02 Jul, 2018 Second trimester Z34.92 ; Subclinical hypothyroidism E03.9 ; Encounter for immunization Z23 ; Acute cystitis without hematuria N30.00 ; 18 weeks gestation of Z3A.18 and Tension headache G44.209 [place] [address] [place] [id number] [place] [address] 64924- 0766 24 Jun, 2018 [place] [address] [address]- 9810 Jun, Acquired hypothyroidism E03.9 [place] [address] [address]45- 2236 08 Jun, 2018 Urinary tract infection affecting care of mother in first trimester, antepartum O23.41 [place] [address] [place] [id number] [place] [address] 18235- 0282 07 Jun, 2018 [place] [address] [address]- 3990 Jun, [place] [address] [place] [id number] [place] [address] 45138- 4106 Jun, [place] [address] [place] [id number] [place] [address] 54764- 6286 Jun, BMI 45.0-49.9, adult Z68.42 ; Multigravida in first trimester Z34.81 and 11 weeks gestation of Z3A.11 [place] [address] [place] [id number] [place] [address]502- 6369 Jun, [place] [address] [place] [id number] [place] [address] 07412- 8390 Jun, Encounter for test, result unknown Z32.00 [facility] [place] [address] [place] [address] Sep, Vaginal bleeding, abnormal N93.9 and Pelvic cramping R10.[address] [address] Jul, Encounter for Depo-Provera contraception Z30.42 [facility] [address] [address] Apr, Encounter for Depo-Provera contraception Z30.[address] [address] Apr, Routine gynecological examination Z01.419 and High risk sexual behavior Z72.[address] [address] Apr, Encounter for initial prescription of injectable contraceptive Z30.[address] [address] Dec, Dental examination Z01.[address] [address] Dec, Dental examination Z01.[address] [address] Nov, Dental examination Z01.[address] [address] Nov, Dental examination Z01.[address] [address] Oct, Dental examination Z01.[address] [address] Oct, Dental examination Z01.20 and Dental caries on smooth surface penetrating into pulp K02.63 [facility] [address] [id number] [address]- 7902 Jan, [facility] [address] [place] [address], [place] [address]- 0137 Jan, [facility] [address] [place] [id number] [address]- 6298 Dec, [place] [address] [id number] [place] [address]- 4734 Dec, [facility] [place] [facility] [address] [id number] [place] [address]- 5029 Oct, [facility] [place] [facility] [address] [id number] [place] [address]- 0391 Oct, [facility] [place] [facility] [address] [id number] [place] [address]- 0173 Oct, [facility] [place] [facility] [address] [id number] [place] [address]- 8006 Oct, [facility] [place] [facility] [address] [id number] [place] [address]- 6651 Oct, [facility] [place] [facility] [address] [id number] [place] [address]- 6295 Oct, [facility] [place] [facility] [address] [id number] [place] [address]- 0145 Oct, [facility] [place] [facility] [address] [id number] [place] [address]- 4001 Oct, [facility] [place] [facility] [address] [id number] [place] [address]- 1477 Oct, [facility] [place] [facility] [address] [id number] [place] [address]- 3389 Sep, [facility] [place] [facility] [address] [id number] [place] [address]- 4883 Sep, [facility] [place] [facility] [address] [id number] [place] [address]- 8352 Sep, [facility] [place] [facility] [address] [id number] [place] [address]- 8242 Sep, [facility] [place] [facility] [address] [id number] [place] [address]- 9424 13 Aug, 2013 [facility] [place] [facility] [address] [id number] [place] [address]- 2221 Aug, [facility] [address] [facility] [id number], [place] [address]- 9706 Aug, [facility] [address] [facility] [id number], [place] [address]- 0266 Jul, [facility] [address] [facility] [id number][place] [address]- 0556 Jul, [facility] [address] [facility] [id number][place] [address]- 9226 Jul, [facility] [address] [facility] [id number], [place] [address]- 2438 Jul, [facility] [address], [place] [address]- 4766 Jul, [facility] [address], [place] [address]- 2346 Jul, [facility] [address], [place] [address]- 9971 Jul, [facility] [address] [place] [id number], [place] [address]- 1838 Jul, IMMUNIZATIONS No Known Immunizations SOCIAL HISTORY Never Assessed REASON FOR VISIT Med per lab PLAN OF CARE VITAL SIGNS MEDICATIONS Medication Instructions Dosage Frequency Start Date End Date Duration Status Fosfomycin Tromethamine 3 GM Orally Once a day 1 packet 24h Aug, Aug, 1 dose Active RESULTS No Results PROCEDURES No Known procedures INSTRUCTIONS MEDICATIONS ADMINISTERED No Known Medications MEDICAL (GENERAL) HISTORY Type Description Date Surgical History appendectomy Surgical History section X 2 Hospitalization History Surgery(s)/Childbirth(s)
--- OUTSIDE RECORDS SUMMARY | 2018-11-14 06:35 | XMS REPORT ---
Author Author JENNIE EZIO [facility] Address [address] [place] [address] Care Team Providers Care Supervising Bailiff Name Role Phone JENNIELYUDMILAEZIO Unavailable PROBLEMS Type Condition ICD9-CM Code AUX42-AG Code Onset Dates Condition Status SNOMED Code Problem Acquired hypothyroidism E03.9 Active 425774390 ALLERGIES No Information ENCOUNTERS Encounter Location Date Diagnosis [place] [address] [place] [id number] [place] [address] 49372- 8262 Jul, [place] [address] [place] [id number] [place] [address] 72222- 6809 Jun, [place] [address] [place] [id number] [place] [address] 41448- 1810 Jun, Acquired hypothyroidism E03.9 [place] [address] [place] [id number] [place] [address] 28055- 9240 08 Jun, 2018 Urinary tract infection affecting care of mother in first trimester, antepartum O23.41 [place] [address] [place] [id number] [place] [address] 93575- 7159 07 Jun, 2018 [place] [address] [address] [id number] [place] [address] 89891- 4672 Jun, [place] [address] [place] [id number] [place] [address] 89306- 9071 Jun, [place] [address] [place] [id number] [place] [address] 43362- 0746 Jun, BMI 45.0-49.9, adult Z68.42 ; Multigravida in first trimester Z34.81 and 11 weeks gestation of Z3A.11 [place] [address] [id number] [place] [address] 90974- 8506 Jun, [facility] [address] [address] [id number] [address]- 0272 Jun, Encounter for test, result unknown Z32.[address] [address] Sep, Vaginal bleeding, abnormal N93.9 and Pelvic cramping R10.[address] [address] Jul, Encounter for Depo-Provera contraception Z30.[address] [address] [address] Apr, Encounter for Depo-Provera contraception Z30.[address] [address] Apr, Routine gynecological examination Z01.419 and High risk sexual behavior Z72.[address] [address] Apr, Encounter for initial prescription of injectable contraceptive Z30.[address] [address] Dec, Dental examination Z01.[address] [address] Dec, Dental examination Z01.[address] [address] Nov, Dental examination Z01.[address] [address] [address] Nov, Dental examination Z01.20 [facility] [place] [address] [place] [address] Oct, Dental examination Z01.[address] [address] Oct, Dental examination Z01.20 and Dental caries on smooth surface penetrating into pulp K02.63 [facility] [address] [facility] [id number] [address]- 6244 Jan, [facility] [address] [id number] [place] [address]- 8580 13 Jan, 2015 [facility] [place] [facility] [address] [id number] [place] [address]- 9953 Dec, [facility] [place] [facility] [address] [id number] [place] [address]- 9430 Dec, [facility] [place] [facility] [address] [id number] [place] [address]- 4068 Oct, [facility] [place] [facility] [address] [id number] [place] [address]- 8711 Oct, [facility] [place] [facility] [address] [id number] [place] [address]- 3640 Oct, [facility] [place] [facility] [address] [id number] [place] [address]- 6337 Oct, [facility] [place] [facility] [address] [id number] [place] [address]- 3394 Oct, [facility] [place] [facility] [address] [id number] [place] [address]- 4991 Oct, [facility] [place] [facility] [address] [id number] [place] [address]- 3891 Oct, [facility] [place] [facility] [address] [id number] [place] [address]- 9004 Oct, [facility] [place] [facility] [address] [id number], [place] [address]- 4473 Oct, [facility] [place] [facility] [address] [id number] [place] [address]- 2371 Sep, [facility] [place] [facility] [address] [id number] [place] [address]- 3986 Sep, [facility] [place] [facility] [address] [id number], [place] [address]- 4726 Sep, [facility] [place] [facility] [address] [id number], [place] [address]- 1738 Sep, [facility] [address], [place] [address]- 4589 Aug, [facility] [address] 7446 Aug, [facility] [address], [place] [address]- 0320 Aug, [facility] [address] 7452 Jul, [facility] [address] [place] [address] 513314- 1638 Jul, [facility] [address], [place] [address]- 4126 Jul, [facility] [address], [place] [address]- 2084 Jul, [facility] [address], [place] [address]- 2177 Jul, [facility] [address], [place] [address]- 2610 Jul, [facility] [address], [place] [address]- 2134 Jul, [facility] [address], [place] [address]- 8543 Jul, IMMUNIZATIONS No Known Immunizations SOCIAL HISTORY Never Assessed REASON FOR VISIT Returned call PLAN OF CARE VITAL SIGNS MEDICATIONS Unknown Medications RESULTS No Results PROCEDURES No Known procedures INSTRUCTIONS MEDICATIONS ADMINISTERED No Known Medications MEDICAL (GENERAL) HISTORY Type Description Date Surgical History appendectomy Surgical History section X 2 Hospitalization History Surgery(s)/Childbirth(s)
--- OUTSIDE RECORDS SUMMARY | 2018-11-14 06:35 | XMS REPORT ---
Author Author JENNIE EZIO [facility] Address [address] [place] [address] Care Team Providers Care Catcher Filter Tip Name Role Phone JENNIELYUDMIALEZIO Unavailable PROBLEMS Type Condition ICD9-CM Code UVT39-YR Code Onset Dates Condition Status SNOMED Code Problem Acquired hypothyroidism E03.9 Active [id number] ALLERGIES No Information ENCOUNTERS Encounter Location Date Diagnosis [place] [id number] [place] [address] 26190- 3071 Jul, [place] [id number] [place] [address] 78836- 2214 Jun, [place] [id number] [place] [address] 84098- 9981 Jun, Acquired hypothyroidism E03.9 [place] [id number] [place] [address] 48942- 0985 08 Jun, 2018 Urinary tract infection affecting care of mother in first trimester, antepartum O23.41 [place] [id number] [place] [address] 70246- 0375 07 Jun, 2018 [place] [id number] [place] [address] 97650- 2527 Jun, [place] [id number] [place] [address] 51125- 0400 Jun, [place] [id number] [place] [address] 20734- 7633 Jun, BMI 45.0-49.9, adult Z68.42 ; Multigravida in first trimester Z34.81 and 11 weeks gestation of Z3A.11 [place] [id number] [place] [address] 55061- 3171 Jun, [facility] [address] [id number] [address] Jun, Encounter for test, result unknown Z32.[address] [address] Sep, Vaginal bleeding, abnormal N93.9 and Pelvic cramping R10.[address] [address] Jul, Encounter for Depo-Provera contraception [facility]30.[address] [facility] [address] [address] Apr, Encounter for Depo-Provera contraception Z30.[address] [address] Apr, Routine gynecological examination Z01.419 and High risk sexual behavior Z72.[address] [address] Apr, Encounter for initial prescription of injectable contraceptive Z30.[address] [address] Dec, Dental examination Z01.[address] [address] Dec, Dental examination Z01.[address] [address] Nov, Dental examination Z01.[address] [facility] [address] [address] Nov, Dental examination Z01.20 [facility] [place] [address] [place] [address] Oct, Dental examination Z01.[address] [facility] [address] [address] Oct, Dental examination Z01.20 and Dental caries on smooth surface penetrating into pulp K02.63 [facility] [address] [facility] [id number] [address] Jan, [facility] [address] [id number] [place] [address] 0933 13 Jan, 2015 [facility] [place] [facility] [address] [id number] [place] [address]- 8422 Dec, [facility] [place] [facility] [address] [id number] [place] [address] 3757 Dec, [facility] [place] [facility] [address] [id number] [place] [address]- 7499 Oct, [facility] [place] [facility] [address] [id number] [place] [address]- 0182 Oct, [facility] [place] [facility] [address] [id number] [place] [address]- 0215 Oct, [facility] [place] [facility] [address] [id number] [place] [address]- 9432 Oct, [facility] [place] [facility] [address] [id number] [place] [address]- 3940 Oct, [facility] [place] [facility] [address] [id number] [place] [address]- 9559 Oct, [facility] [place] [facility] [address] [id number] [place] [address]- 2992 Oct, [facility] [place] [facility] [address] [id number] [place] [address]- 7366 Oct, [facility] [place] [facility] [address] [id number], [place] [address] 9790 Oct, [facility] [place] [facility] [address] [id number] [place] [address]- 8851 Sep, [facility] [place] [facility] [address] [id number] [place] [address]- 0196 Sep, [facility] [place] [facility] [address] [id number], [place] [address] 3[address] Sep, [facility] [place] [facility] [address] [id number], [place] [address] 2546 Sep, [facility] [address], [place] [address] 3596 Aug, [facility] [address], [place] [address]- 7366 Aug, [facility] [address], [place] [address]- 2546 Aug, [facility] [address], [place] [address]- 7307 Jul, [facility] [address] [place] [address] 16628- 7633 Jul, [facility] [address], [place] [address]- 6628 Jul, [facility] [address], [place] [address]- 4086 Jul, [facility] [address] 2796 Jul, [facility] [address] 2381 Jul, [facility] [address] [address] 2670 Jul, [facility] [address], [place] [address]- 2008 Jul, IMMUNIZATIONS No Known Immunizations SOCIAL HISTORY [...]
--- OUTSIDE RECORDS SUMMARY | 2018-11-14 06:35 | XMS REPORT ---
Author Author JENNIE EZIO [facility] Address [address] [place] [address] Care Team Providers Care Security Installation Technician Name Role Phone JENNIELYUDMILAEZIO Unavailable PROBLEMS Type Condition ICD9-CM Code VSB82-BU Code Onset Dates Condition Status SNOMED Code Problem Acquired hypothyroidism E03.9 Active [id number] ALLERGIES No Information ENCOUNTERS Encounter Location Date Diagnosis [place] [id number] [place] [address] 63416- 7420 Jul, [place] [id number] [place] [address] 74306- 2873 Jun, [place] [id number] [place] [address] 23088- 1858 Jun, Acquired hypothyroidism E03.9 [place] [id number] [place] [address] 33900- 9600 08 Jun, 2018 Urinary tract infection affecting care of mother in first trimester, antepartum O23.41 [place] [id number] [place] [address] 29366- 3435 07 Jun, 2018 [place] [id number] [place] [address] 11647- 4855 Jun, [place] [id number] [place] [address] 90441- 3141 Jun, [place] [id number] [place] [address] 86989- 4388 Jun, BMI 45.0-49.9, adult Z68.42 ; Multigravida in first trimester Z34.81 and 11 weeks gestation of Z3A.11 [place] [id number] [place] [address] 19149- 2906 Jun, [facility] [address] [id number], [place] [address]- 8863 Jun, Encounter for test, result unknown Z32.[address] [address] Sep, Vaginal bleeding, abnormal N93.9 and Pelvic cramping R10.[address] [address] Jul, Encounter for Depo-Provera contraception Z30.[address] [facility] [address] [address] Apr, Encounter for Depo-Provera contraception Z30.[address] [address] Apr, Routine gynecological examination Z01.419 and High risk sexual behavior Z72.[address] [address] Apr, Encounter for initial prescription of injectable contraceptive Z30.[address] [address] Dec, Dental examination Z01.[address] [address] Dec, Dental examination Z01.[address] [address] Nov, Dental examination Z01.[address] [facility] [address] [address] Nov, Dental examination Z01.20 [facility] [place] [address] [place] [address] Oct, Dental examination Z01.[address] [facility] [address] [address] Oct, Dental examination Z01.20 and Dental caries on smooth surface penetrating into pulp K02.63 [facility] [address] [facility] [id number], [place] [address]- 8556 Jan, [facility] [address] [id number] [place] [address]- 8962 13 Jan, 2015 [facility] [place] [facility] [address] [id number] [place] [address]- 7826 Dec, [facility] [place] [facility] [address] [id number] [place] [address]- 6346 Dec, [facility] [place] [facility] [address] [id number] [place] [address]- 7665 Oct, [facility] [place] [facility] [address] [id number] [place] [address]- 4665 Oct, [facility] [place] [facility] [address] [id number] [place] [address]- 2941 Oct, [facility] [place] [facility] [address] [id number] [place] [address]- 2661 Oct, [facility] [place] [facility] [address] [id number] [place] [address]- 8766 Oct, [facility] [place] [facility] [address] [id number] [place] [address]- 6429 Oct, [facility] [place] [facility] [address] [id number] [place] [address]- 1497 Oct, [facility] [place] [facility] [address] [id number] [place] [address]- 6654 Oct, [facility] [place] [facility] [address] [id number], [place] [address]- 3799 Oct, [facility] [place] [facility] [address] [id number] [place] [address]- 7928 Sep, [facility] [place] [facility] [address] [id number] [place] [address]- 7306 Sep, [facility] [place] [facility] [address] [id number], [place] [address]- 5606 Sep, [facility] [place] [facility] [address] [id number], [place] [address]- 7243 Sep, [facility] [address], [place] [address]- 7393 Aug, [facility] [address] 2182 Aug, [facility] [address]65100[place], [place] [address]- 9173 Aug, [facility] [address]- 5198 Jul, [facility] [address] [place] [address] 403849- 0023 Jul, [facility] [address], [place] [address]- 4670 Jul, [facility] [address]65[address], [place] [address]- 4912 Jul, [facility] [address], [place] [address]- 7189 Jul, [facility] [address], [place] [address]- 1944 Jul, [facility] [address], [place] [address]- 5647 Jul, [facility] [address], [place] [address]- 4743 Jul, IMMUNIZATIONS No Known Immunizations SOCIAL HISTORY Never Assessed REASON FOR VISIT Returned call PLAN OF CARE VITAL SIGNS MEDICATIONS Unknown Medications RESULTS No Results PROCEDURES No Known procedures INSTRUCTIONS MEDICATIONS ADMINISTERED No Known Medications MEDICAL (GENERAL) HISTORY Type Description Date Surgical History appendectomy Surgical History section X 2 Hospitalization History Surgery(s)/Childbirth(s)
--- OUTSIDE RECORDS SUMMARY | 2018-11-14 06:35 | XMS REPORT ---
Author Author JENNIE EZIO [facility] Address [address] [place] [address] Care Team Providers Care Fast Food Restaurant Manager Name Role Phone JENNIELYUDMILAEZIO Unavailable PROBLEMS Type Condition ICD9-CM Code QRY33-QJ Code Onset Dates Condition Status SNOMED Code Problem Acquired hypothyroidism E03.9 Active [id number] ALLERGIES No Information ENCOUNTERS Encounter Location Date Diagnosis [place] [id number] [place] [address] 98376- 7883 Jul, [place] [id number] [place] [address] 27283- 3429 Jun, [place] [id number] [place] [address] 09627- 1553 Jun, Acquired hypothyroidism E03.9 [place] [id number] [place] [address] 25089- 4736 08 Jun, 2018 Urinary tract infection affecting care of mother in first trimester, antepartum O23.41 [place] [id number] [place] [address] 54735- 2975 07 Jun, 2018 [place] [id number] [place] [address] 13987- 1178 Jun, [place] [id number] [place] [address] 50272- 5280 Jun, [place] [id number] [place] [address] 13068- 7623 Jun, BMI 45.0-49.9, adult Z68.42 ; Multigravida in first trimester Z34.81 and 11 weeks gestation of Z3A.11 [place] [id number] [place] [address] 61171- 0542 Jun, [facility] [address] [id number], [place] [address]- 2408 Jun, Encounter for test, result unknown Z32.[address] [address] Sep, Vaginal bleeding, abnormal N93.9 and Pelvic cramping R10.[address] [address] Jul, Encounter for Depo-Provera contraception Z30.[address] [facility] [address] [address] Apr, Encounter for Depo-Provera contraception Z30.[address] [address] Apr, Routine gynecological examination Z01.419 and High risk sexual behavior Z72.[address] [address] Apr, Encounter for initial prescription of injectable contraceptive Z30.[address] [address] Dec, Dental examination Z01.[address] [address] Dec, Dental examination Z01.[address] [address] Nov, Dental examination Z01.[address] [facility] [address] [address] Nov, Dental examination Z01.20 [facility] [place] [address] [place] [address] Oct, Dental examination Z01.[address] [facility] [address] [address] Oct, Dental examination Z01.20 and Dental caries on smooth surface penetrating into pulp K02.63 [facility] [address] [facility] [id number] [address]- 2438 Jan, [facility] [address] [id number] [place] [address]- 7785 13 Jan, 2015 [facility] [place] [facility] [address] [id number] [place] [address]- 3330 Dec, [facility] [place] [facility] [address] [id number] [place] [address]- 1024 Dec, [facility] [place] [facility] [address] [id number] [place] [address]- 2888 Oct, [facility] [place] [facility] [address] [id number] [place] [address]- 2058 Oct, [facility] [place] [facility] [address] [id number] [place] [address]- 8073 Oct, [facility] [place] [facility] [address] [id number] [place] [address]- 4880 Oct, [facility] [place] [facility] [address] [id number] [place] [address]- 2835 Oct, [facility] [place] [facility] [address] [id number] [place] [address]- 1142 Oct, [facility] [place] [facility] [address] [id number] [place] [address]- 2008 Oct, [facility] [place] [facility] [address] [id number] [place] [address]- 6901 Oct, [facility] [place] [facility] [address] [id number], [place] [address]- 9972 Oct, [facility] [place] [facility] [address] [id number] [place] [address]- 6147 Sep, [facility] [place] [facility] [address] [id number] [place] [address]- 4246 Sep, [facility] [place] [facility] [address] [id number], [place] [address]- 0806 Sep, [facility] [place] [facility] [address] [id number], [place] [address]- 2296 Sep, [facility] [address], [place] [address]- 9163 Aug, [facility] [address], [place] [address]- 8254 Aug, [facility] [address], [place] [address]- 1176 Aug, [facility] [address], [place] [address]- 2133 Jul, [facility] [address] [place] [address] 43824- 5120 Jul, [facility] [address]- 5907 Jul, [facility] [address]- 5048 Jul, [facility] [address], [place] [address]- 1042 Jul, [facility] [address] 0335 Jul, [facility] [address], [place] [address]- 8551 Jul, [facility] [address] [id number]- 1325 Jul, IMMUNIZATIONS No Known Immunizations SOCIAL HISTORY Never Assessed REASON FOR VISIT UTI PLAN OF CARE VITAL SIGNS MEDICATIONS Medication Instructions Dosage Frequency Start Date End Date Duration Status Amoxicillin 500 mg Orally every 12 hrs 1 capsule 12h 08 Jun, 2018 Jun, 7 days Active RESULTS No Results PROCEDURES No Known procedures INSTRUCTIONS MEDICATIONS ADMINISTERED No Known Medications MEDICAL (GENERAL) HISTORY Type Description Date Surgical History appendectomy Surgical History section X 2 Hospitalization History Surgery(s)/Childbirth(s)
--- OUTSIDE RECORDS SUMMARY | 2018-11-14 06:35 | XMS REPORT ---
Author Author EZIO SCHNEIDER [facility] Address [address] [place] [address] Care Team Providers Care Minesweeping Officer Name Role Phone EZIO SCHNEIDER Unavailable PROBLEMS ALLERGIES No Information ENCOUNTERS IMMUNIZATIONS No Known Immunizations SOCIAL HISTORY No smoking Hx information available REASON FOR VISIT PLAN OF CARE VITAL SIGNS MEDICATIONS Unknown Medications RESULTS No Results PROCEDURES No Known procedures INSTRUCTIONS MEDICATIONS ADMINISTERED No Known Medications MEDICAL (GENERAL) HISTORY
--- OUTSIDE RECORDS SUMMARY | 2018-11-14 06:35 | XMS REPORT ---
Author Author KARIN ROJAS [facility] Address [address] [place] [address] Care Team Providers Care Registered Radiographer Name Role Phone KARIN ROJAS Unavailable PROBLEMS Type Condition ICD9-CM Code ZCU31-AI Code Onset Dates Condition Status SNOMED Code Problem Acquired hypothyroidism E03.9 Active [id number] ALLERGIES No Information ENCOUNTERS Encounter Location Date Diagnosis [place] [id number] [place] [address] 56262- 6075 Jul, [place] [id number] [place] [address] 52039- 6504 Jun, [place] [id number] [place] [address] 72403- 4929 Jun, Acquired hypothyroidism E03.9 [facility] [address] [address]- 4243 08 Jun, 2018 Urinary tract infection affecting care of mother in first trimester, antepartum O23.41 [place] [id number] [place] [address] 99644- 5516 Jun, [facility] [id number] [place] [address] 68038- 5859 Jun, [facility] [id number] [place] [address] 41562- 7499 Jun, [place] [address] 0[address]15- 5008 Jun, BMI 45.0-49.9, adult Z68.42 ; Multigravida in first trimester Z34.81 and 11 weeks gestation of Z3A.11 [place] [id number] [place] [address] 10540- 5898 Jun, [facility] [address] [id number], [place] [address]- 2446 Jun, Encounter for test, result unknown Z32.[address] [address] Sep, Vaginal bleeding, abnormal N93.9 and Pelvic cramping R10.[address] [address] Jul, Encounter for Depo-Provera contraception Z30.[address] [address] Apr, Encounter for Depo-Provera contraception Z30.[address] [address] Apr, Routine gynecological examination Z01.419 and High risk sexual behavior Z72.[address] [address] Apr, Encounter for initial prescription of injectable contraceptive Z30.[address] [address] Dec, Dental examination Z01.[address] [address] [address] Dec, Dental examination Z01.[address] [address] [address] Nov, Dental examination Z01.20 [facility] [address] [place] [address] Nov, Dental examination Z01.20 [facility] [address] [place] [address] Oct, Dental examination Z01.20 [facility] [address] [place] [address] Oct, Dental examination Z01.20 and Dental caries on smooth surface penetrating into pulp K02.63 [facility] [address] [id number], [place] [address]- 3316 Jan, [facility] [address] [id number] [place] [address]- 8782 Jan, [facility] [place] [facility] [address] [id number] [place] [address]- 2839 Dec, [facility] [place] [facility] [address] [id number] [place] [address]- 4157 Dec, [facility] [place] [facility] [address] [id number] [place] [address]- 4386 Oct, [facility] [place] [facility] [address] [id number] [place] [address]- 4385 Oct, [facility] [place] [facility] [address] [id number] [place] [address]- 0779 Oct, [facility] [place] [facility] [address] [id number] [place] [address]- 1459 Oct, [facility] [place] [facility] [address] [id number] [place] [address]- 5629 Oct, [facility] [place] [facility] [address] [id number] [place] [address]- 1546 Oct, [facility] [place] [facility] [address] [id number] [place] [address]- 5861 Oct, [facility] [place] [facility] [address] [id number] [place] [address]- 2280 Oct, [facility] [place] [facility] [address] [id number] [place] [address]- 7043 Oct, [facility] [place] [facility] [address] [id number] [place] [address]- 5580 Sep, [facility] [place] [facility] [address] [id number] [place] [address] Sep, [facility] [place] [facility] [address] [id number] [place] [address] Sep, [facility] [place] [facility] [address] [id number], [place] [address] Sep, [facility] [address] [facility] [id number], [place] [address] Aug, [facility] [address] [facility] [id number], [place] [address] Aug, [facility] [address] [facility] [id number], [place] [address] Aug, [facility] [address] [facility] [id number], [place] [address] Jul, [facility] [address] [facility] [id number], [place] [address] Jul, [facility] [address] [facility] [id number], [place] [address] Jul, [facility] [address] [facility] [id number], [place] [address] Jul, [facility] [id number], [place] [address] Jul, [facility] [address] [facility] [id number][place] [address] Jul, [facility] [address] [id number], [place] [address] Jul, [facility] [address] [id number] [address] Jul, IMMUNIZATIONS No Known Immunizations SOCIAL HISTORY Never Assessed REASON FOR VISIT Presumptive Eligibility PLAN OF CARE VITAL SIGNS MEDICATIONS Unknown Medications RESULTS No Results PROCEDURES No Known procedures INSTRUCTIONS MEDICATIONS ADMINISTERED No Known Medications MEDICAL (GENERAL) HISTORY Type Description Date Surgical History appendectomy Surgical History section X 2 Hospitalization History Surgery(s)/Childbirth(s)
--- OUTSIDE RECORDS SUMMARY | 2018-11-14 06:35 | XMS REPORT ---
Author Author JENNIE EZIO [facility] Address [address] [place] [address] Care Team Providers Care Prefitter Doors Name Role Phone JENNIELYUDMILA HULLHANY Unavailable PROBLEMS Type Condition ICD9-CM Code [id number] Code Onset Dates Condition Status SNOMED Code Problem Acquired hypothyroidism E03.9 Active 305141255 ALLERGIES No Known Allergies ENCOUNTERS Encounter Location Date Diagnosis [place] [id number] [place] [address]- [address]86 Jul, [place] [id number] [place] [address]75- 6145 Jun, [place] [id number] [place] [address] 29719- 3208 Jun, Acquired hypothyroidism E03.9 [place] [id number] [place] [address] 75997- 8907 08 Jun, 2018 Urinary tract infection affecting care of mother in first trimester, antepartum O23.41 [place] [id number] [place] [address] 48497- 5576 Jun, [place] [id number] [place] [address]13- 3751 Jun, [place] [id number] [place] [address] 10604- 8427 Jun, [place] [address] [address] Jun, BMI 45.0-49.9, adult Z68.42 ; Multigravida in first trimester Z34.81 and 11 weeks gestation of Z3A.11 [place] [id number] [place] [address]21- 3[address] Jun, [facility] [address] [facility] [id number] [address] Jun, Encounter for test, result unknown Z32.[address] [address] Sep, Vaginal bleeding, abnormal N93.9 and Pelvic cramping R10.[address] [address] Jul, Encounter for Depo-Provera contraception Z30.[address] [address] Apr, Encounter for Depo-Provera contraception Z30.[address] [address] Apr, Routine gynecological examination Z01.419 and High risk sexual behavior Z72.[address] [address] Apr, Encounter for initial prescription of injectable contraceptive Z30.013 [facility] [address] [address] Dec, Dental examination Z01.[address] [address] Dec, Dental examination Z01.20 [facility] [address] [address] Nov, Dental examination Z01.[address] [address] Nov, Dental examination Z01.20 [facility] [address] [address] Oct, Dental examination Z01.20 [facility] [address] [address] Oct, Dental examination Z01.20 and Dental caries on smooth surface penetrating into pulp K02.63 [facility] [address] [place] [address] [id number] [address] Jan, [facility] [address] [id number] [place] [address] Jan, [facility] [place] [facility] [address] [id number] [place] [address] 9[address] Dec, [facility] [place] [facility] [address] [id number] [place] [address] 7[address] Dec, [facility] [place] [facility] [address] [id number] [place] [address] 05[address] Oct, [facility] [place] [facility] [address] [id number] [place] [address] 8[address] Oct, [facility] [place] [facility] [address] [id number] [place] [address] 4[address] Oct, [facility] [place] [facility] [address] [id number] [place] [address] 7021 Oct, [facility] [place] [facility] [address] [id number] [place] [address]- 9704 Oct, [facility] [place] [facility] [address] [id number] [place] [address] Oct, [facility] [place] [facility] [address] [id number], [place] [address] 6[address] Oct, [facility] [place] [facility] [address] [id number] [address] 395[address] Oct, [facility] [place] [facility] [address] [id number], [place] [address] 60[address] Oct, [facility] [place] [facility] [address] [id number] [place] [address] 9220 Sep, [facility] [place] [facility] [address] [id number] [place] [address]- 9786 Sep, [facility] [place] [facility] [address] [id number], [place] [address] 8[address] Sep, [facility] [place] [facility] [address] [id number][place] [address] Sep, [facility] [address] [address] Aug, [facility] [address] [place] [address] 919414- 5770 Aug, [facility] [id number] [place] [address]17- 9380 Aug, [facility] [id number] [place] [address] 978984- 1248 Jul, [facility] [id number] [place] [address] 116223- 7330 Jul, [facility] [id number] [place] [address]- 2303 Jul, [facility] [id number] [place] [address] 35712- 0960 Jul, [facility] [id number] [place] [address] 05111- 8975 Jul, [facility] [id number] [place] [address] 81984- 1450 Jul, [facility] [id number] [place] [address] 25974- 3862 Jul, [facility] [id number] [place] [address]- 5524 Jul, IMMUNIZATIONS No Known Immunizations SOCIAL HISTORY Never Assessed REASON FOR VISIT OB-intake, pelvic pain since she found out she was , not leaking, c/o headache-awoods PLAN OF CARE Activity Details Follow Up 4W, 4 Weeks Reason: VITAL SIGNS Height 58 in 2018-06-11 Weight 230.7 lbs 2018-06-11 Temperature 98.3 degrees Fahrenheit 2018-06-11 Heart Rate 90 bpm 2018-06-11 Respiratory Rate 18 2018-06-11 BMI 48.216 kg/m2 2018-06-11 Blood pressure systolic 124 mmHg 2018-06-11 Blood pressure diastolic 84 mmHg 2018-06-11 MEDICATIONS Medication Instructions Dosage Frequency Start Date End Date Duration Status Ferrous Sulfate Active Vitamins - (Dis) Active RESULTS No Results PROCEDURES Procedure Date Ordered Result Body Site VENIPUNCT, ROUTINE* Jun 11, 2018 URINALYSIS, AUTO, W/O SCOPE Jun 11, 2018 URINE CULTURE/COLONY COUNT Jun 11, 2018 Hemoglobin Test Send Out 0 dollar Jun 11, 2018 ASSAY THYROID STIM HORMONE Jun 11, 2018 No Charge Jun 11, 2018 DRUG TEST PRSMV DIR OPT OBS Jun 11, 2018 TRICHOMONAS ASSAY W/OPTIC Jun 11, 2018 CULTURE, BACTERIA, OTHER Jun 11, 2018 INSTRUCTIONS MEDICATIONS ADMINISTERED No Known Medications MEDICAL (GENERAL) HISTORY Type Description Date Surgical History appendectomy Surgical History section X 2 Hospitalization History Surgery(s)/Childbirth(s)
--- OUTSIDE RECORDS SUMMARY | 2018-11-14 06:36 | XMS REPORT ---
Author Author STEPHANIE BRIAN Organization [employer] Address Unknown Phone Unavailable Care Team Providers Care Air Conditioning Sheet Metal Installer Name Role Phone STEPHANIE BRIAN CP Unavailable Allergies, Adverse Reactions, Alerts Substance Reaction Event Type N.K.D.A. Info Not Available Non Drug Allergy Problems Problem Type Condition Code Onset Dates Condition Status Assessment Dental examination Z01.20 Active Assessment Dental caries on smooth surface penetrating into pulp K02.63 Active Problem Previous delivery, unspecified as to episode of care or not applicable 654.20 Active Problem Insufficient care V23.7 Active Problem Routine follow-up V24.2 Active Problem Need for prophylactic vaccination and inoculation, Influenza V04.81 Active Problem Trichomonal vulvovaginitis 131.01 Active Problem Screening examination for venereal disease V74.5 Active Problem Screening for malignant neoplasm of the cervix V76.2 Active Medications No Known Medications Procedures Procedure Coding System Code Date INTRAORL-PERIAPICAL 1 FILM 41139 CPT-4 D0220 Oct 11, 2015 EXTRAC ERUPTED TOOTH/EXPOSED ROOT CPT-4 D7140 Oct 11, 2015 LTD ORAL EVALUATION - PROBLEM FOCUS CPT-4 D0140 Oct 11, 2015 Vital Signs Date/Time: Oct 11, 2015 Blood Pressure Diastolic 74 mmHg Blood Pressure Systolic 118 mmHg Results No Known Results Summary Purpose eClinicalWorks Submission
--- OUTSIDE RECORDS SUMMARY | 2018-11-14 06:36 | XMS REPORT ---
Author Author TG MATTSON Organization [employer] Address Unknown Phone Unavailable Care Team Providers Care Solutions Analyst Name Role Phone TG MATTSON CP Unavailable Allergies, Adverse Reactions, Alerts Substance Reaction Event Type N.K.D.A. Info Not Available Non Drug Allergy Problems Problem Type Condition Code Onset Dates Condition Status Assessment High risk sexual behavior Z72.51 Active Problem Trichomonal vulvovaginitis 131.01 Active Assessment Routine gynecological examination Z01.419 Active Problem Routine follow-up V24.2 Active Problem Previous delivery, unspecified as to episode of care or not applicable 654.20 Active Problem Dental examination Z01.20 Active Problem Screening for malignant neoplasm of the cervix V76.2 Active Problem Need for prophylactic vaccination and inoculation, Influenza V04.81 Active Problem Insufficient care V23.7 Active Problem Screening examination for venereal disease V74.5 Active Medications No Known Medications Procedures Procedure Coding System Code Date CHYLMD TRACH, DNA, AMP PROBE CPT-4 20615 April 24, 2016 N.GONORRHOEAE, DNA, AMP PROB CPT-4 95033 April 24, 2016 SPECIMEN HANDLING CPT-4 30943 April 24, 2016 Preventive Care Est Pt. Age 18-39 CPT-4 76959 April 24, 2016 Vital Signs Date/Time: April 24, 2016 Cardiac Monitoring Heart Rate 80 bpm Weight 222.6 lbs Height 58 in Blood Pressure Diastolic 64 mmHg Blood Pressure Systolic 106 mmHg Results No Known Results Summary Purpose eClinicalWorks Submission
--- OUTSIDE RECORDS SUMMARY | 2018-11-14 06:36 | XMS REPORT ---
Author Author TG MATTSON Organization [employer] Address Unknown Phone Unavailable Care Team Providers Care Lace Weaver Name Role Phone TG MATTSON CP Unavailable Allergies No Known Allergies Problems Problem Type Condition Code Onset Dates Condition Status Problem Trichomonal vulvovaginitis 131.01 Active Assessment Encounter for Depo-Provera contraception Z30.42 Active Problem Routine follow-up V24.2 Active Problem [...] Medications Procedures Procedure Coding System Code Date THER/PROPH/DIAG INJ, SC/IM CPT-4 35291 Jul 27, 2016 DEPO PROVERA (150 MG/ML) CPT-4 J1050 Jul 27, 2016 Results No Known Results Summary Purpose eClinicalWorks Submission
--- OUTSIDE RECORDS SUMMARY | 2018-11-14 06:36 | XMS REPORT ---
Author Author MARIAH SOSA [facility] Address [address] [place] [address] Care Team Providers Care Safety Companion Name Role Phone SOSAMARIAH Unavailable PROBLEMS Type Condition ICD9-CM Code [id number]-GW Code Onset Dates Condition Status SNOMED Code Problem Trichomonal vulvovaginitis 131.01 Active 74872267 Problem Screening for malignant neoplasm of the cervix V76.2 Active 866649436 Problem Need for prophylactic vaccination and inoculation, Influenza V04.81 Active 670379045 Problem Vaginal bleeding, abnormal N93.9 Active 474802133 Problem Dental examination Z01.20 Active 70018569 Problem Insufficient care V23.7 Active 1954988155300 Problem Screening examination for venereal disease V74.5 Active 787585978 Problem Routine follow-up V24.2 Active 572017531 Problem Previous delivery, unspecified as to episode of care or not applicable 654.20 Active 710519729 ALLERGIES Substance Reaction Event Type Date Status N.K.D.A. Unknown Non Drug Allergy Sep, Unknown SOCIAL HISTORY No smoking Hx information available PLAN OF CARE Activity Details Follow Up prn, 2 - 3 Days Reason:f/u after US results VITAL SIGNS Height 58 in 2016-09-26 Weight 215.7 lbs 2016-09-26 Temperature 98.2 degrees Fahrenheit 2016-09-26 Heart Rate 80 bpm 2016-09-26 Respiratory Rate 16 2016-09-26 BMI 45.08 kg/m2 2016-09-26 Blood pressure systolic 104 mmHg 2016-09-26 Blood pressure diastolic 64 mmHg 2016-09-26 MEDICATIONS Medication Instructions Dosage Frequency Start Date End Date Duration Status Ibuprofen 800 MG Orally Three times a day 1 tablet 8h Sep,Oct 30 day(s) Active RESULTS Name Result Date Reference Range TSH 2016-09-26 TSH 3.220 0.450-4.500 CBC 2016-09-26 WBC 10.4 3.4-10.8 RBC 4.32 3.77-5.28 Hemoglobin 12.7 11.1-15.9 Hematocrit 38.8 34.0-46.6 MCV 90 79-97 MCH 29.4 26.6-33.0 MCHC 32.7 31.5-35.7 RDW 13.4 12.3-15.4 Platelets 374 150-379 Neutrophils 57 Lymphs 36 Monocytes 5 Eos 2 Basos 0 Immature Cells Neutrophils (Absolute) 5.8 1.4-7.0 Lymphs (Absolute) 3.7 0.7-3.1 Monocytes(Absolute) 0.6 0.1-0.9 Eos (Absolute) 0.2 0.0-0.4 Baso (Absolute) 0.0 0.0-0.2 Immature Granulocytes 0 Immature Grans (Abs) 0.0 0.0-0.1 NRBC Hematology Comments: CMP 2016-09-26 Glucose, Serum 44 65-99 BUN 13 6-20 Creatinine, Serum 0.59 0.57-1.00 eGFR If NonAfricn Am 128 >59 eGFR If Africn Am 147 >59 BUN/Creatinine Ratio 22 8-20 Sodium, Serum 141 134-144 Potassium, Serum 3.9 3.5-5.2 Chloride, Serum 98 96-106 Carbon Dioxide, Total 21 18-29 Calcium, Serum 9.4 8.7-10.2 Protein, Total, Serum 7.5 6.0-8.5 Albumin, Serum 4.5 3.5-5.5 Globulin, Total 3.0 1.5-4.5 A/G Ratio 1.5 1.1-2.5 Bilirubin, Total <0.2 0.0-1.2 Alkaline Phosphatase, S 72 39-117 AST (SGOT) 16 0-40 ALT (SGPT) 17 0-32 Ultrasound : Pelvic, Follow-up (NON-OB) 2016-10-05 PROCEDURES Procedure Date Ordered Related Diagnosis Body Site Office Visit, Est Pt., Level 3 Sep 26, 2016 ASSAY THYROID STIM HORMONE Sep 26, 2016 COMPREHEN METABOLIC PANEL Sep 26, 2016 COMPLETE CBC W/AUTO DIFF WBC Sep 26, 2016 VENIPUNCT, ROUTINE* Sep 26, 2016 IMMUNIZATIONS No Known Immunizations
--- OUTSIDE RECORDS SUMMARY | 2018-11-14 06:36 | XMS REPORT ---
Author Author MERCEDEZ SELBY [facility] eClinicalWorks Address Unknown Phone Unavailable Care Team Providers Care Online Marketing Coordinator Name Role Phone MERCEDEZ SELBY CP Unavailable Allergies, Adverse Reactions, Alerts Substance Reaction Event Type N.K.D.A. Info Not Available Non Drug Allergy Problems Problem Type Condition Code Onset Dates Condition Status Assessment Dental examination Z01.20 Active Problem Previous delivery, unspecified as to episode of care or not applicable 654.20 Active Problem Insufficient care V23.7 Active Problem Routine follow-up V24.2 Active Problem Need for prophylactic vaccination and inoculation, Influenza V04.81 Active Problem Trichomonal vulvovaginitis 131.01 Active Problem Screening examination for venereal disease V74.5 Active Problem Screening for malignant neoplasm of the cervix V76.2 Active Medications Medication Code System Code Instructions Start Date End Date Status Dosage Ferrous Sulfate [facility] [address]-73 325 mg (65 mg iron) Aug 06, 2013 1 tablet by Oral route 1 time per day Procedures Procedure Coding System Code Date BITEWINGS - FOUR FILMS CPT-4 D0274 Oct 11, 2015 PANORAMIC FILM SEE ALSO CODE 07997 CPT-4 D0330 Oct 11, 2015 COMP ORAL EVALUATION - NEW/EST PT CPT-4 D0150 Oct 11, 2015 Vital Signs Date/Time: Oct 11, 2015 Blood Pressure Diastolic 74 mmHg Blood Pressure Systolic 118 mmHg Results No Known Results Summary Purpose eClinicalWorks Submission
--- OUTSIDE RECORDS SUMMARY | 2018-11-14 06:36 | XMS REPORT ---
Author Author KARIN ROJAS [facility] Address [address] [place] [address] Care Team Providers Care Manager Of Allied Health Services Name Role Phone KARIN ROJAS Unavailable PROBLEMS Type Condition ICD9-CM Code CYR95-IH Code Onset Dates Condition Status SNOMED Code Problem Acquired hypothyroidism E03.9 Active 076138048 ALLERGIES No Information ENCOUNTERS Encounter Location Date Diagnosis [place] [id number] [place] [address]00- 2633 Jul, [place] [id number] [place] [address] 90775- 4869 Jun, [place] [id number] [place] [address] 96546- 5728 Jun, Acquired hypothyroidism E03.9 [facility] [address] [address] 08 Jun, 2018 Urinary tract infection affecting care of mother in first trimester, antepartum O23.41 [place] [id number] [place] [address] 27957- 3666 07 Jun, 2018 [facility] [id number] [place] [address] 87925- 4211 Jun, [facility] [id number] [place] [address] 96032- 7973 Jun, [place] [address] [address]- [address]82 Jun, BMI 45.0-49.9, adult Z68.42 ; Multigravida in first trimester Z34.81 and 11 weeks gestation of Z3A.11 [place] [id number] [place] [address]74- 2278 Jun, [facility] [address] [id number], [place] [address]- 0[address] Jun, Encounter for test, result unknown Z32.[address] [address] Sep, Vaginal bleeding, abnormal N93.9 and Pelvic cramping R10.[address] [address] Jul, Encounter for Depo-Provera contraception Z30.[address] [address] Apr, Encounter for Depo-Provera contraception Z30.[address] [address] Apr, Routine gynecological examination Z01.419 and High risk sexual behavior Z72.[address] [address] Apr, Encounter for initial prescription of injectable contraceptive Z30.[address] [address] Dec, Dental examination Z01.[address] [address] Dec, Dental examination Z01.[address] [address] Nov, Dental examination Z01.20 [facility] [address] [place] [address] Nov, Dental examination Z01.20 [facility] [address] [place] [address] Oct, Dental examination Z01.20 [facility] [address] [place] [address] Oct, Dental examination Z01.20 and Dental caries on smooth surface penetrating into pulp K02.63 [facility] [address] [id number], [place] [address]- 9687 Jan, [facility] [address] [id number] [place] [address]- 0505 Jan, [facility] [place] [facility] [address] [id number] [place] [address]- 6904 Dec, [facility] [place] [facility] [address] [id number] [place] [address]- 7211 Dec, [facility] [place] [facility] [address] [id number] [place] [address]- 8710 Oct, [facility] [place] [facility] [address] [id number] [place] [address]- 4824 Oct, [facility] [place] [facility] [address] [id number] [place] [address]- 8590 Oct, [facility] [place] [facility] [address] [id number] [place] [address]- 6642 Oct, [facility] [place] [facility] [address] [id number] [place] [address]- 5889 Oct, [facility] [place] [facility] [address] [id number] [place] [address]- 7632 Oct, [facility] [place] [facility] [address] [id number] [place] [address]- 2253 Oct, [facility] [place] [facility] [address] [id number] [place] [address]- 6290 Oct, [facility] [place] [facility] [address] [id number] [place] [address]- 5985 Oct, [facility] [place] [facility] [address] [id number] [place] [address]- 3075 Sep, [facility] [place] [facility] [address] [id number] [place] [address]- 2970 Sep, [facility] [place] [facility] [address] [id number] [place] [address]- 7745 Sep, [facility] [place] [facility] [address] [id number], [place] [address]- 99[address] Sep, [facility] [address] [facility] [id number], [place] [address]- 9164 Aug, [facility] [address] [facility] [id number], [place] [address] 5[address] Aug, [facility] [address] [facility] [id number], [place] [address] 2545 Aug, [facility] [address] [facility] [id number], [place] [address]- 0087 Jul, [facility] [address] [facility] [id number], [place] [address]- 5045 Jul, [facility] [address] [facility] [id number], [place] [address]- 0166 Jul, [facility] [address] [facility] [id number], [place] [address]- 4[address] Jul, [facility] [address] [address] Jul, [facility] [address] [facility] [id number] 3315 Jul, [facility] [address] [address] Jul, [facility] [address] [id number], [place] [address]- 1591 Jul, IMMUNIZATIONS No Known Immunizations SOCIAL HISTORY Never Assessed REASON FOR VISIT Lab (walk-in)urine test PLAN OF CARE VITAL SIGNS MEDICATIONS Unknown Medications RESULTS Name Result Date Reference Range TEST, URINE (IN HOUSE) 2018-06-10 RESULTS Positive Lot # [id number] Control + Exp date 10/2019 PROCEDURES Procedure Date Ordered Result Body Site URINE TEST Jun 10, 2018 INSTRUCTIONS MEDICATIONS ADMINISTERED No Known Medications MEDICAL (GENERAL) HISTORY Type Description Date Surgical History appendectomy Surgical History section X 2 Hospitalization History Surgery(s)/Childbirth(s)
--- OUTSIDE RECORDS SUMMARY | 2018-11-14 06:36 | XMS REPORT ---
Author TG Milian Organization eClinicalWorks Address Unknown Phone Unavailable Care Team Providers Care Diabetes Solutions Specialist Name Role Phone TG MATTSON CP Unavailable Allergies, Adverse Reactions, Alerts Substance Reaction Event Type N.K.D.A. Info Not Available Non Drug Allergy Problems Problem Type Condition Code Onset Dates Condition Status Problem Trichomonal vulvovaginitis 131.01 Active Assessment Encounter for initial prescription of injectable contraceptive Z30.013 Active Problem Routine follow-up V24.2 Active Problem [...] Medications Procedures Procedure Coding System Code Date Office Visit, New Pt., Level 3 CPT-4 24883 April 10, 2016 Vital Signs Date/Time: April 10, 2016 Cardiac Monitoring Heart Rate 66 bpm Weight 225.4 lbs Height 58 in Blood Pressure Diastolic 86 mmHg Blood Pressure Systolic 102 mmHg Results No Known Results Summary Purpose eClinicalWorks Submission
--- OUTSIDE RECORDS SUMMARY | 2018-11-14 06:36 | XMS REPORT ---
Author Author TG MATTSON Organization [employer] Address Unknown Phone Unavailable Care Team Providers Care First Helper Name Role Phone TG MATTSON CP Unavailable [...] System Code Date THER/PROPH/DIAG INJ, SC/IM CPT-4 07058 April 27, 2016 DEPO PROVERA (150 MG/ML) CPT-4 J1050 April 27, 2016 Results No Known Results Summary Purpose eClinicalWorks Submission
--- OUTSIDE RECORDS SUMMARY | 2018-11-14 06:36 | XMS REPORT ---
Author Author KARIN ROJAS [facility] Address [address] [place] [address] Care Team Providers Care Geophysical Laboratory Director Name Role Phone KARIN ROJAS Unavailable PROBLEMS Type Condition ICD9-CM Code JSY41-GA Code Onset Dates Condition Status SNOMED Code Problem Acquired hypothyroidism E03.9 Active [id number] ALLERGIES No Known Allergies ENCOUNTERS Encounter Location Date Diagnosis [place] [place] [id number] [place] [address] Jul, [place] [id number] [place] [address] Jun, [place] [id number] [place] [address] 12 Jun, 2018 Acquired hypothyroidism E03.9 [facility] [address] [address] 08 Jun, 2018 Urinary tract infection affecting care of mother in first trimester, antepartum O23.41 [place] [id number] [place] [address] 07 Jun, 2018 [facility] [id number] [place] [address] Jun, [facility] [id number] [place] [address] Jun, [place] [address] [address] 05 Jun, 2018 BMI 45.0-49.9, adult Z68.42 ; Multigravida in first trimester Z34.81 and 11 weeks gestation of Z3A.11 [place] [address] [address] Jun, [facility] [address] [facility] [id number], [place] [address] Jun, Encounter for test, result unknown Z32.[address] [address] Sep, Vaginal bleeding, abnormal N93.9 and Pelvic cramping R10.[address] [address] Jul, Encounter for Depo-Provera contraception Z30.[address] [address] Apr, Encounter for Depo-Provera contraception Z30.[address] [address] Apr, Routine gynecological examination Z01.419 and High risk sexual behavior Z72.[address] [address] Apr, Encounter for initial prescription of injectable contraceptive Z30.[address] [address] Dec, Dental examination Z01.[address] [address] Dec, Dental examination Z01.[address] [address] Nov, Dental examination Z01.[address] [address] Nov, Dental examination Z01.[address] [address] Oct, Dental examination Z01.[address] [address] Oct, Dental examination Z01.20 and Dental caries on smooth surface penetrating into pulp K02.63 [facility] [address] [facility] [id number], [place] [address] Jan, [facility] [address] [id number] [place] [address] Jan, [facility] [address] [id number] [place] [address] Dec, [facility] [place] [facility] [address] [id number] [place] [address] Dec, [facility] [address] [id number] [place] [address] Oct, [facility] [address] [id number] [place] [address] Oct, [facility] [address] [id number] [place] [address] Oct, [facility] [address] [id number] [place] [address] Oct, [facility] [address] [id number] [place] [address] Oct, [facility] [address] [id number] [place] [address] Oct, [facility] [address] [id number] [place] [address] Oct, [facility] [address] [id number] [place] [address] Oct, [facility] [place] [facility] [address] [id number] [place] [address] Oct, [facility] [place] [facility] [address] [id number] [place] [address] Sep, [facility] [place] [facility] [address] [id number] [place] [address] Sep, [facility] [place] [facility] [address] [id number] [place] [address] Sep, [facility] [place] [facility] [id number] [place] [address] Sep, [facility] [address] [id number], [place] [address] Aug, [facility] [address] [id number], [place] [address] Aug, [facility] [address] [id number], [place] [address] Aug, [facility] [address] [id number], [place] [address] Jul, [facility] [address] [id number] [address] Jul, [facility] [id number] [place] [address] Jul, [facility] [address] [address] Jul, [facility] [address], [place] [address] Jul, [facility] [address] [id number] Jul, [facility] [address]65[address], [place] [address] Jul, [facility] [address], [place] [address] Jul, IMMUNIZATIONS No Known Immunizations SOCIAL HISTORY Never Assessed REASON FOR VISIT OB intake hx. -- megha lindsey PLAN OF CARE VITAL SIGNS MEDICATIONS Medication Instructions Dosage Frequency Start Date End Date Duration Status Vitamins - (Dis) Active RESULTS No Results PROCEDURES No Known procedures INSTRUCTIONS MEDICATIONS ADMINISTERED No Known Medications MEDICAL (GENERAL) HISTORY Type Description Date Surgical History appendectomy Surgical History section X 2 Hospitalization History Surgery(s)/Childbirth(s)
[2018-11-14] MEDS ORDERED: fentaNYL INJECTION 100 MCG/2 ML AMP ONE (06:40)
[2018-11-14] MEDS ORDERED: OXYTOCIN/NORMAL SALINE 1,000 ML IV ONE (06:40)
[2018-11-14] MEDS ORDERED: FAMOTIDINE 20MG/2ML IV (PEPCID) IV ONE (06:45)
[2018-11-14] MEDS ORDERED: LACTATED RINGERS 1,000 ML IV PRN (06:45)
[2018-11-14] MEDS ORDERED: ceFAZolin 2 GM IV Premixed 50 ML IV ONE (06:45)
[2018-11-14] MEDS ORDERED: CITRIC ACID/SOB CIT (BICITRA) 30 ML UDC PO ONE (06:45)
[2018-11-14] MEDS ORDERED: METOCLOPRAMIDE INJ 10 MG/2 ML (REGLAN) IV ONE (06:45)
[2018-11-14 07:04] LABS: BASOPHILS % (AUTO) 0 % (0-10); EOSINOPHILS # (AUTO) 0.1 10^3/uL (0.0-0.3); EOSINOPHILS % (AUTO) 1 % (0-10); HEMATOCRIT 32 % (35-52); LYMPHOCYTES # (AUTO) 1.3 X 10^3 (1.0-4.0); LYMPHOCYTES % (AUTO) 16 % (12-44); MEAN CORPUSCULAR HEMOGLOBIN 31 PG (25-34); MEAN CORPUSCULAR HGB CONC 35 G/DL (32-36); MEAN CORPUSCULAR VOLUME 89 FL (80-99); MEAN PLATELET VOLUME 10.6 FL (7.4-10.4); MONOCYTES # (AUTO) 0.7 X 10^3 (0.0-1.0); MONOCYTES % (AUTO) 8 % (0-12); NEUTROPHILS # (AUTO) 6.1 X 10^3 (1.8-7.8); NEUTROPHILS % (AUTO) 75 % (42-75); PLATELET COUNT 245 10^3/uL (130-400); RED CELL DISTRIBUTION WIDTH 12.7 % (10.0-14.5); WHITE BLOOD COUNT 8.2 10^3/uL (4.3-11.0)
[2018-11-14] MEDS ORDERED: OXYTOCIN/NORMAL SALINE 500 ML IV SCH (07:24)
--- NOTE | 2018-11-14 07:24 | History & Physical-OB ---
OB - Chief Complaint & HPI Date/Time Date of Admission: Date of Admission: Nov 14, 2018 at 06:25 Date seen by a Provider: Nov 14, 2018 Time Seen by a Provider: 07:05 Chief Complaint/History OB-Reason for Admission/Chief: Section Hx : 4 Hx Para: 2 Expected Date of Delivery: Dec 05, 2018 Indication for : desires repeat Admission Nurse Assessment Rev: Yes Other O pos Antibody neg RI HBsAg NR HIV NR GC neg GBS unknown Allergies and Home Medications Allergies Coded Allergies: No Known Drug Allergies (Unverified , 11/12/18) Home Medications No Active Prescriptions or Reported Meds Patient Home Medication List Home Medication List Reviewed: Yes OB - History Hx of Present Care: Yes Ultrasounds: Normal mid trimester US Obstetrical Complications: Gestational Diabetes, Other (Cholestasis of ) Obstetrical History Hx Termination: No Hx Multiple Gestation: No Hx Stillbirth: No Hx Complication: No Hx Induced Hypertens: No Hx Maternal Gestational Diabet: No Delivery History Hx Dystocia: No Hx Large For Gestational Age I: No Hx Small for Gestational Age I: No Hx Section: Yes Hx Vaginal Delivery Post C-Sec: No Hx Blood Disorders: No Adverse Rxn to Tranfusion: No (N/A) Patient Past Medical History Sub clinical hypothyroidism Social History/Family History HIV/AIDS: No Sexually Transmitted Disease: No Alcohol Use: Denies Use Recreational Drug Use: No Immunizations Tetanus Booster (TDap): Unknown Date of Influenza Vaccine: Jul 14, 2018 OB - Admission Exam Physical Exam Vitals: Vital Signs 11/14/18 06:32 Temp 97.8 Pulse 109 Resp 18 B/P (MAP) 114/55 (74) HEENT: NCAT Heart: Rhythm Normal Lungs: Clear Abdomen: Gravid Extremities: Normal Reflexes: Normal Membranes: Intact Heart Rate: 130's Accelerations: Accelerations Present Decelerations: No Decelerations Short Term Variability: Present 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 [employer] Variability: Average (6-25) Contractions on Admission: >10 Minutes Apart Intensity: Mild Labs Laboratory Tests Test 11/14/18 06:49 11/14/18 06:55 Range/Units Glucometer 91 70-110 MG/DL White Blood Count 8.2 4.3-11.0 10^3/uL Red Blood Count 3.59 L 4.35-5.85 10^6/uL Hemoglobin 11.0 L 11.5-16.0 G/DL Hematocrit 32 L 35-52 % Mean Corpuscular Volume 89 80-99 FL Mean Corpuscular Hemoglobin 31 25-34 PG Mean Corpuscular Hemoglobin Concent 35 32-36 G/DL Red Cell Distribution Width 12.7 10.0-14.5 % Platelet Count 245 130-400 10^3/uL Mean Platelet Volume 10.6 H 7.4-10.4 FL Neutrophils (%) (Auto) 75 42-75 % Lymphocytes (%) (Auto) 16 12-44 % Monocytes (%) (Auto) 8 0-12 % Eosinophils (%) (Auto) 1 0-10 % Basophils (%) (Auto) 0 0-10 % Neutrophils # (Auto) 6.1 1.8-7.8 X 10^3 Lymphocytes # (Auto) 1.3 1.0-4.0 X 10^3 Monocytes # (Auto) 0.7 0.0-1.0 X 10^3 Eosinophils # (Auto) 0.1 0.0-0.3 10^3/uL Basophils # (Auto) 0.0 0.0-0.1 10^3/uL OB - Assessment/Plan/Diagnosis Assessment Assessment: section Admission Dx 28 yo @ 37 Previous GDMA1 Cholestasis of BMI 40 Admission Status: Inpatient Order (span 2 midnights) Reason for Inpatient Admission: Repeat Plan Plan: Section TORI BRAVO DO Nov 14, 2018 07:24
--- NOTE | 2018-11-14 07:28 | NUR ---
FHR 130's with accelerations. Mom and MGM are non-Yakut speaking. FOB speaks Yakut so questions and instructions were given to father. [id number] Off of monitor and ambulated to OR with staff.
--- NOTE | 2018-11-14 07:29 | Discharge Inst-Women's Service ---
Discharge Inst-Women's Serv Depart Medication/Instructions New, Converted or Re-Newed RX: RX on Chart Final Diagnosis POD 2 RLTCS Consults/Follow Up Additional Follow Up: Yes Orders/Referrals Dr. Lui in 7-10 days, Dr. Wong in 6 weeks Activity Activity: Activity as Tolerated Driving Instructions: No Driving for 1 Week NO SMOKING: NO SMOKING Nothing Inside Vagina: No Douching, No [place], No Tampons Diet Discharge Diet: No Restrictions Symptoms to Report to : Bleeding Excessive, Pain Increased, Fever Over 101 Degrees F, Vaginal Bleeding Increase, Questions/Concerns For Any Problems or Questions: Contact Your Physician Skin/Wound Care Infection Signs and Symptoms: Increased Redness, Foul Odor of Wound, Increased Drainage, Skin Itchy or Has a Rash, Increased Swelling, Temperature Above 101 F Operative Area Clean and Dry: Keep Incision Clean/Dry Stitches/[place]/Dermabond: Dermabond, Care of Stitches Bathing Instructions: TORI Herring DO Nov 14, 2018 07:29
[2018-11-14] MEDS ORDERED: MEASLES,MUMPS,RUBELLA 1 EA INJ SC SCH (07:30)
[2018-11-14] MEDS ORDERED: TETANUS,DIPTH,PERTUSS P/F (BOOSTRIX) 0.5 ML VIAL IM SCH (07:30)
[2018-11-14] MEDS ORDERED: HYDROmorphone 2 MG/ML VIAL (DILAUDID) IV PRN (07:30)
[2018-11-14] MEDS ORDERED: ONDANSETRON 4 MG/2 ML (SDV) Z0FRAN IVP PRN (07:30)
[2018-11-14] MEDS ORDERED: IBUP-844 PO (07:31)
[2018-11-14] MEDS ORDERED: ACHD5005 PO (07:31)
[2018-11-14] MEDS ORDERED: DOCU100C37 PO (07:31)
[2018-11-14] MEDS ORDERED: LIDOCAINE PF 2% 5 ML (XYLOCAINE) VIAL ONE (08:33)
[2018-11-14] MEDS ORDERED: BUPIVACAINE SPINAL 0.75% (SENSORCAINE) 2 ML AMP ONE (08:33)
[2018-11-14] MEDS ORDERED: BUPIVACAINE 0.5% 30 ML (SENSORCAINE) VIAL ONE (09:18)
[2018-11-14] MEDS ORDERED: PHENYLEPHRINE 100 MCG/ML 10 ML (ANESTHESIA) SYR ONE (09:18)
--- NOTE | 2018-11-14 10:35 | NUR ---
Report from Aristides miner RN
[2018-11-14 11:04] VITALS: BP 114/71
[2018-11-14] MEDS: KETOROLAC 30 MG/ML VIAL IVP SCH ×3 (11:07→23:08)
[2018-11-14] MEDS: DOCUSATE SODIUM 100 MG (COLACE) CAP PO SCH ×2 (12:49→21:13)
[2018-11-14 13:10] VITALS: BP 113/73
[2018-11-14] MEDS ORDERED: CATHETER FLUSH 10 ML SYR IV SCH (14:00)
--- NOTE | 2018-11-14 14:44 | NUR ---
Assisted up to void. pericare, pad changed. ambulates well. back to bed.
[2018-11-14 16:52] VITALS: BP 124/75
--- NOTE | 2018-11-14 18:51 | OPERATIVE REPORT ---
DATE OF SERVICE: 11/14/2018 PREOPERATIVE DIAGNOSES: 1. A 28-year-old G4, P3 at 37 weeks' gestation. 2. Cholestasis of . 3. GDMA1. 4. Prior section x3. POSTOPERATIVE DIAGNOSES: 1. A 28-year-old G4, P3 at 37 weeks' gestation. 2. Cholestasis of . 3. GDMA1. 4. Prior section x3. PROCEDURE PERFORMED: Repeat low transverse section. SURGEON: Marco Bravo DO. ANESTHESIA: Spinal. ESTIMATED BLOOD LOSS: 600 mL. URINE OUTPUT: 200 mL clear at the end of the procedure. FLUIDS: 1900 mL lactate Ringer solution. FINDINGS: A live male with weight pending, Apgars of 8 and 9. Grossly normal-appearing uterus, bilateral fallopian tubes and ovaries with dense scarring of the vesicouterine peritoneum and obliteration of the anterior cul-de-sac. SPECIMENS SENT: Placenta. INDICATIONS FOR PROCEDURE: This 28-year-old female was a late transfer of care from a family practice doctor due to complications arising from the , including cholestasis, gestational diabetes and previous . After I took over care, she underwent weekly surveillance and we discussed delivery and her preoperative visits, including , risks of bleeding, infection, damage to vital structures and all the things that are associated with a as far as risks, benefits and alternatives. After everything was discussed with the patient, consent was obtained in the preoperative area after it was reviewed with her. After the consent was obtained, the patient was taken to the operating room. DESCRIPTION OF PROCEDURE: Once in the operating room, spinal anesthesia was found to be adequate, placed in supine position with leftward tilt, prepped and draped in normal sterile fashion. A time out was performed and anesthesia was tested. A Pfannenstiel skin incision was then made through the previous existing scar using a knife and carried down through the underlying fascia using Bovie cautery. The fascial incision was extended laterally using Bovie cautery. Superior aspect of fascial incision was then grasped with Bandar clamps, tented up and dissected off the underlying rectus muscles. Inferior aspect of the fascial incision was then grasped with Bandar clamps, tented upward and dissected off the underlying rectus muscles. The rectus muscles were then dissected down the midline using Mitchell scissors, which exposed with the peritoneum, which was bluntly dissected. This is a difficult dissection due to the amount of adhesions of the bladder and vesicouterine peritoneum to the lower uterine segment; however, this was bluntly taken off and the bladder is not encountered during my dissection. Once I have cleared off the lower uterine segment, identified and make a low transverse incision to the incision, it is carried down until the membranes were visualized, at which point I extended the uterine incision laterally and superiorly using bandage scissors. Amniotomy was performed using Allis clamp. Clear fluid was noted. The was found in vertex presentation. With gentle fundal pressure, the infant's head was delivered through the incision where the nares and oropharynx were then bulb suctioned. Anterior and posterior shoulders were delivered. Infant was then brought to the operative field and the cord was doubly clamped and cut. Infant was handed off to the waiting nurses in attendance. Cord blood was collected. Three-vessel cord was intact. Placenta was delivered spontaneously thereafter. IV Pitocin was initiated to facilitate uterine contraction. Uterine fundus became firmer with bimanual massage. The uterus was exteriorized and cleared of endometrial clots and debris. I then proceeded with closing the uterine incision using #0 Vicryl suture in running locked fashion. A second layer of imbricating #0 Monocryl was placed. Excellent hemostasis was noted after doing this except for the right corner of the incision, which tends to continue to bleed. Bleeding was ligated using 2-0 Vicryl suture in a ygjght-be-axujs fashion, at which point I placed the uterus back in the pelvis and copiously irrigated the pelvis with normal saline. Once again, there was no active bleeding noted from any of my dissection planes. I placed Surgicel over the persistent bleeding portion of the right apex of the incision of the uterus. The remainder of the incision was covered using Interceed to prevent recurrent adhesions. I then removed the Morgan ring retractor and proceeded with closing the peritoneum and rectus muscles in one layer using 3-0 Vicryl suture in running fashion. The fascia was reapproximated with #0 Vicryl suture in running fashion. Subcutaneous tissue was reapproximated using 3-0 plain in interrupted subcutaneous stitch and skin reapproximated using 4-0 Monocryl in running subcuticular. Dermabond was applied to incision. Band-Aid was adhesed with white tape. The patient tolerated the procedure well and sent to recovery in stable condition. Lap and sponge counts were correct at the end of the procedure. Instrument counts correct as well. Two grams of Ancef was given preoperatively for infection prophylaxis. Job ID: [id number] DocumentID: [id number] Dictated Date: 11/14/2018 09:04:41 Public Safety Telecommunicator Date: 11/14/2018 18:50:45 Dictated By: MARCO BRAVO DO
--- NOTE | 2018-11-14 21:00 | NUR ---
Pt resting in bed. assessment completed. family at bedside. pt denies any needs at this time. will continue to monitor.
[2018-11-14 21:18] VITALS: BP 120/76
[2018-11-14] MEDS: HYDROcodone/APAP 5 MG/325 MG (LORTAB) TAB PO PRN (21:45)
[2018-11-15 01:30] VITALS: BP 111/67
[2018-11-15] MEDS: IBUPROFEN 600 MG (MOTRIN) TAB PO SCH ×2 (04:25→10:15)
[2018-11-15] MEDS: HYDROcodone/APAP 5 MG/325 MG (LORTAB) TAB PO PRN ×2 (04:26→12:35)
--- NOTE | 2018-11-15 04:57 | NUR ---
ABDOMINAL DSRG REMOVED. INCISION C/D/I. NO DRAINAGE NOTED.
[2018-11-15 05:00] VITALS: BP 119/78
[2018-11-15 05:21] LABS: BASOPHILS % (AUTO) 0 % (0-10); EOSINOPHILS # (AUTO) 0.1 10^3/uL (0.0-0.3); EOSINOPHILS % (AUTO) 1 % (0-10); HEMATOCRIT 28 % (35-52); HEMOGLOBIN 9.7 G/DL (11.5-16.0); LYMPHOCYTES # (AUTO) 1.3 X 10^3 (1.0-4.0); LYMPHOCYTES % (AUTO) 16 % (12-44); MEAN CORPUSCULAR HEMOGLOBIN 31 PG (25-34); MEAN CORPUSCULAR HGB CONC 35 G/DL (32-36); MEAN CORPUSCULAR VOLUME 89 FL (80-99); MEAN PLATELET VOLUME 10.2 FL (7.4-10.4); MONOCYTES # (AUTO) 0.7 X 10^3 (0.0-1.0); MONOCYTES % (AUTO) 8 % (0-12); NEUTROPHILS # (AUTO) 6.3 X 10^3 (1.8-7.8); NEUTROPHILS % (AUTO) 75 % (42-75); PLATELET COUNT 224 10^3/uL (130-400); RED CELL DISTRIBUTION WIDTH 12.9 % (10.0-14.5); WHITE BLOOD COUNT 8.4 10^3/uL (4.3-11.0)
--- NOTE | 2018-11-15 09:55 | NUR ---
Dr. Waldrop here to see pt. Discharge orders rec'd.
--- NOTE | 2018-11-15 10:03 | Postpartum Progress Note ---
Post Op Post-operative Day #2 s/p RLTCS Subjective: Patient is without complaints. Ambulating, voiding after alonso removed. Tolerating a regular diet without nausea or vomiting. Normal lochia. Pain is well controlled with oral pain medications. Passing flatus. Objective: 11/15/18 11/15/18 01:30 05:00 Temp 98.3 98.0 Pulse 78 89 Resp 18 18 B/P (MAP) 111/67 (82) 119/78 (92) Pulse Ox 98 98 11/15/18 00:00 Intake Total 1020 ml Output Total 750 ml Balance 270 ml Physical Exam: General - Alert and oriented, no apparent distress Abdomen - Soft, appropriately tender to palpation, non-distended, fundus firm at umbilicus Incision - clean, dry and intact; no erythema or induration, no drainage Extremities - no edema, negative Amy's bilaterally Assessment: 1. post-operative day # 2, status post RLTCS. Recovering well, hemodynamically stable Plan: Routine post-operative care. Encourage breast feeding. Encourage ambulation. VTE prophylaxis: SCDs. Ferrous sulfate supplementation. Plan for discharge today per Dr. Lui orders Vitals - Labs Vital Signs - I&O Vital Signs Date Time Temp Pulse Resp B/P (MAP) Pulse Ox O2 Delivery O2 Flow Rate FiO2 11/15/18 05:00 98.0 89 18 119/78 (92) 98 11/15/18 01:30 98.3 78 18 111/67 (82) 98 11/14/18 21:18 98.0 88 18 120/76 (91) 98 11/14/18 16:52 98.9 95 18 124/75 (91) 98 11/14/18 13:10 99.1 85 18 113/73 (86) 97 11/14/18 11:04 98.6 81 18 114/71 (85) 98 I & O 11/15/18 07:00 Intake Total 2620 ml Output Total 1950 ml Balance 670 ml Labs Laboratory Tests 11/15/18 05:12: White Blood Count 8.4, Red Blood Count 3.15L, Hemoglobin 9.7L, Hematocrit 28L, Mean Corpuscular Volume 89, Mean Corpuscular Hemoglobin 31, Mean Corpuscular Hemoglobin Concent 35, Red Cell Distribution Width 12.9, Platelet Count 224, Mean Platelet Volume 10.2, Neutrophils (%) (Auto) 75, Lymphocytes (%) (Auto) 16 , Monocytes (%) (Auto) 8, Eosinophils (%) (Auto) 1, Basophils (%) (Auto) 0, Neutrophils # (Auto) 6.3, Lymphocytes # (Auto) 1.3, Monocytes # (Auto) 0.7, Eosinophils # (Auto) 0.1, Basophils # (Auto) 0.0 BELIA JACOBO DO Nov 15, 2018 10:03
[2018-11-15 10:15] VITALS: BP 114/79
[2018-11-15] MEDS: DOCUSATE SODIUM 100 MG (COLACE) CAP PO SCH (10:15)
--- NOTE | 2018-11-15 11:15 | NUR ---
Shower set up for pt at this time. Pt showering independently. NO questions or concerns voiced.
--- NOTE | 2018-11-15 12:30 | NUR ---
Discharge instructions explained using S.O. as residential sales representative. S.O. speaks fluent Moldovan. Notified of need to schedule follow up appointments. Prescriptions given along with copy of discharge instructions. Pt and S.O. verbalize understanding of teaching, pt signs to verify. 2 Lortab given per pt request for c/o pain. Addendum: 11/15/18 at 1310 by RAINER IVORY RN All questions answered to pt and S.O. satisfaction.
--- NOTE | 2018-11-15 12:45 | NUR ---
Pt taken off unit via wheelchair accompanied by S.O., family, and RN. To private vehicle. All personal belongings with pt. NO s/s of distress noted.
--- NOTE | 2018-11-15 23:53 | Anesthesia-Regional Post-Op ---
Regional Patient Condition Mental Status: Alert, Oriented x3 Circulation: Same as Pre-Op Headache: Absent Sensation: Full Recovery Motor Block: Absent Post Op Complications Complications None Follow Up Care/Instructions Patient Instructions None needed. Anesthesia/Patient Condition Patient is doing well, no complaints, stable vital signs, no apparent adverse anesthesia problems. No complications reported per nursing. RILEY TAPIA CRNA Nov 15, 2018 23:53
--- NOTE | 2018-11-20 09:32 | DISCHARGE SUMMARY ---
DATE OF SERVICE: ADMISSION DIAGNOSES: 1. A 28-year-old G4, P2 at 37 weeks gestation. 2. Previous section. 3. GDMA 1. 4. Cholestasis of . 5. BMI of 40. DISCHARGE DIAGNOSES: 1. A 28-year-old G4, P2 at 37 weeks gestation. 2. Previous section. 3. GDMA 1. 4. Cholestasis of . 5. BMI of 40. 6. Postop day 2 repeat low transverse section. 7. Acute blood loss anemia. ATTENDING PHYSICIAN: Dr. Marco Liu. SERVICES: Women's services. HOSPITAL COURSE: As follows: Please see admission H and P from 11/14/2018 for complete details pertaining to the patient's admission presentation and plan of care. Please see operative report from 11/14/2018 for complete details pertaining to the patient's operative report in detail as well as the indications for procedure, an early delivery at 37 weeks. Postoperative course for this patient was fairly routine. On postop day #1, she was ambulating and voiding freely. She was doing well. Her incision was clean, dry and intact. She had an acute drop in her hemoglobin, and was started on iron replacement. Her vital signs were stable on postop day #1. On postop day #2, she continued to improve clinically and was doing well. Decision was made to discharge the patient on postop day #2. She was given routine postoperative and post- precautions and told to return to care if any of these concerns should arise. She was sent home on the following medications including Colace 100 mg 1 p.o. b.i.d. p.r.n. as needed for constipation #40. [place] 5/325 one to two p.o. q.4-6 hours p.r.n. as needed for pain #50 and Motrin 600 mg 1 p.o. q.6 hours p.r.n. as needed for pain #80. All of her questions were answered pertaining to administration of these medications. The patient was discharged at that point without further difficulty. Job ID: [id number] DocumentID: [id number] Dictated Date: 11/20/2018 08:46:30 Hose Tender Date: 11/20/2018 09:31:47 Dictated By: DO CORBIN CASANOVA
== END 2018-11-15 12:45 | disposition home or self-care (01) | DRG 786 ==
LOC: LDRP 06:25 → WS 10:57
PROVIDERS: ADMIT Obstetrics & Gynecology; ATTEND Obstetrics & Gynecology
PROC: 10D00Z1 Extraction of Products of Conception, Low, Open Approach (ICD-10-PCS; principal; 2018-11-14 07:29)
DX: O34.211 Maternal care for low transverse scar from previous cesarean delivery (principal); O26.62 Liver and biliary tract disorders in childbirth; K83.1 Obstruction of bile duct; O99.283 Endocrine, nutritional and metabolic diseases complicating pregnancy, third trimester; E02 Subclinical iodine-deficiency hypothyroidism; O24.420 Gestational diabetes mellitus in childbirth, diet controlled; O90.81 Anemia of the puerperium; D62 Acute posthemorrhagic anemia; Z3A.37 37 weeks gestation of pregnancy; Z37.0 Single live birth
CPT/HCPCS: 36415; 82962; 85025; 86850; 86900; 86901; 88307; 90715; 94664